=== PATIENT | male | born 1960 | race African-American/Black ===

== ENCOUNTER 2021-05-24 17:44 | Inpatient (IN) | payer MEDICARE, SELFPAY ==
--- NOTE | ~2021-05-24 | XR_ITS ---
EXAMINATION: XR chest 2V DATE: 05/24/2021 18:37 INDICATION: Lower limb swelling, congestive heart failure TECHNIQUE: AP and lateral views of the chest are obtained. COMPARISON: None available FINDINGS: Cardiomegaly is noted. There are small pleural effusions, left greater than right. There ar e also airspace opacities of the lung bases, left greater than right. No pneumothorax is identified. There is mild thoracic spondylosis. A calcified nodule of the right midlung zone likely reflects old granulomatous disease. IMPRESSION: 1. Cardiomegaly. 2. Small pleural effusions. 3. Bibasilar airspace opacities, consistent with atelectasis versus pneumonia. Reviewed, dictated and finalized at location A.
[2021-05-24 17:55] VITALS: BP 136/90; PULSE 136; RESP 20; TEMP 36.6; O2SAT 100
--- NOTE | 2021-05-24 18:00 | ECG_ITS ---
Measurements Intervals Portal Rate: 123 P: [place]: 0 QRS: 18 QRSD: 101 T: 69 QT: 330 QTc: 474 Interpretive Statements ATRIAL FIBRILLATION WITH RAPID VENTRICULAR RESPONSE BORDERLINE R WAVE PROGRESSION, ANTERIOR LEADS BORDERLINE T WAVE ABNORMALITY- INF/HIGH LAT LEADS BASELINE ARTIFACT- I, II, AVR ABNORMAL ECG Electronically Signed On 05-25-2021 16:59:38 CDT by Casper Azul D.O.
--- NOTE | 2021-05-24 20:02 | ED.GENADULT ---
HPI - General Adult General Chief complaint: Extremity Problem,Nontraumatic Stated complaint: swelling in legs Time Seen by Provider: 05/24/21 18:41 Source: RN notes reviewed History of Present Illness HPI narrative: Patient presents to emergency department from home for lower extremity edema. Patient states these have aggressive swelling of his bilateral lower extremities with weeping. He states that he was recently admitted to [facility] for this but states he does not recall what all his diagnosis are he states he forgot his home medication list does not have it with him he states he does not believe he has a history of atrial fibrillation but does believe he has a history of heart failure he denies any chest pain shortness of breath abdominal pain nausea vomiting or any other symptoms Related Data Home Medications Medication Instructions Recorded Confirmed atorvastatin 40 mg PO DAILY 05/24/21 05/25/21 furosemide 100 mg PO BID 05/24/21 05/25/21 metoprolol succinate 50 mg PO DAILY 05/24/21 05/25/21 spironolactone 25 mg PO DAILY 05/24/21 05/25/21 warfarin 8 mg PO DAILY 05/24/21 05/25/21 Allergies Allergy/AdvReac Type Severity Reaction Status Date / Time No Known Allergies Allergy Verified 05/24/21 19:03 Review of Systems Review of Systems: Gen.: Denies fevers or chills ENT: Denies congestion Respiratory: Denies shortness of breath or cough CV: Denies chest pain or palpitations GI: Denies abdominal pain nausea, emesis Musculoskeletal: Reports lower extremity edema Neuro: Denies numbness, tingling, weakness or focal weakness Skin: Denies rash Except as documented, all other systems reviewed and negative [facility] Past Medical History Medical History (Updated 05/25/21 @ 14:23 by Tiny Ray MD) CHF (congestive heart failure) Family History Family History (Updated 05/25/21 @ 00:52 by Sharath Swanson RN) Father Cancer of lung Hypertension Mother Cancer, colon Diabetes mellitus Hypertension Sibling Diabetes mellitus Hypertension Social History Social History (Updated 05/24/21 @ 20:03 by Omar Medina DO) Years smoked: 40 Smoking status: Former smoker Alcohol intake: former Substance use: former Gender identity (if verbalized by the patient): Male Sexual Orientation (if Verbalized by the Patient): Straight or Heterosexual Spiritual care concerns: No Exam Narrative: APPEARANCE: No acute distress, nontoxic, resting in bed EYES: EOMI HEENT: Normocephalic, atraumatic, OMM RESPIRATORY: No respiratory distress Clear to auscultation bilaterally with no rhonchi wheezing or rales. CARDIOVASCULAR: Regular rate and rhythm without murmurs rubs or gallops. ABDOMINAL: Soft, nontender, nondistended, no rebound or guarding MUSCULOSKELETAl: Moves all extremities. No clubbing, cyanosis 4+ edema of the bilateral lower extremities NEURO: Awake and alert. Following commands, speech normal, no focal deficits SKIN:: Warm, dry. No rashes lesions or abrasions PSYCHIATRIC: Normal affect/mood, Course Course Emergency Course: Discussed with patient and family results of workup and diagnosis. Discussed need for admission. Patient and family understand and agree to current treatment plan Care turned over to Dr. Batista at shift change awaiting troponin lab results. Plan for admission following results Vital Signs Vital signs: Vital Signs Temperature 97.9 F 05/24/21 17:55 Pulse Rate 136 H 05/24/21 17:55 Respiratory Rate 20 05/24/21 17:55 Blood Pressure 136/90 05/24/21 17:55 Pulse Oximetry 100 05/24/21 17:55 Temperature 98.3 F 05/26/21 04:00 Pulse Rate 93 05/26/21 06:00 Respiratory Rate 16 05/26/21 04:00 Blood Pressure 108/80 05/26/21 04:00 Pulse Oximetry 94 05/26/21 04:00 Medical Decision Making Vital Signs Vital Signs: Vital Signs Temperature 97.9 F 05/24/21 17:55 Pulse Rate 136 H 05/24/21 17:55 Respiratory Rate 20 05/24/21 17:
[2021-05-24] MEDS: dilTIAZem HCl INJ 25 MG/5 ML VIAL 5 MG IV PUSH (20:19)
[2021-05-24 20:25] VITALS: BP 171/120; PULSE 119; RESP 29; O2SAT 97
[2021-05-24 20:51] LABS: Basophils Percent Auto 0.7 % (0.2-1.2); Eosinophils Absolute Auto 0.4 K/mm3 (0-0.3); Eosinophils Percent Auto 7.7 % (0-4.4); Hematocrit 43.9 % (42.0-52.0); Immature Granulocyte Absolute 0.02 K/mm3 (0.00-0.031); Immature Granulocyte Percent A 0.4 % (0-0.5); Lymphocytes Absolute Auto 1.49 K/mm3 (0.9-3.2); Lymphocytes Percent Auto 27.2 % (18.3-44.2); Mean Corpuscular HGB Conc 34.2 g/dl (32-36); Mean Corpuscular Hemoglobin 35.3 pg (26-34); Mean Corpuscular Volume 103.3 fl (80-100); Monocytes Absolute Auto 0.3 K/mm3 (0.1-0.6); Monocytes Percent Auto 6.2 % (2.6-8.5); Neutrophils Absolute Auto 3.2 K/mm3 (1.3-6.7); Neutrophils Percent Auto 57.8 % (45.5-73.1); Nucleated Red Blood Cells Perc 0.4 % (0.0-0.2); Platelet Count Result 202 k/mm3 (150-375); Red Blood Count 4.25 M/mm3 (4.6-6.20); Red Cell Distribution Width 15.9 % (11.5-14.5); White Blood Count 5.5 K/mm3 (4.5-10.0)
[2021-05-24 20:58] VITALS: BP 142/105; PULSE 126
[2021-05-24 20:59] LABS: Anion Gap 11 mmol/L (8-16); Blood Urea Nitrogen 10 mg/dL (9-20); Calcium 8.8 mg/dL (8.4-10.2); Carbon Dioxide 19 mmol/L (22-30); Chloride 107 mmol/L (98-107); Estimated CRCL calculation 92 ml/min; Estimated Glomerular Filt Rate > 60; Glucose 102 mg/dL (65-110); Potassium 3.3 mmol/L (3.4-5.0); Sodium 137 mmol/L (137-145)
[2021-05-24 21:02] LABS: INR 1.4; Prothrombin Time 16.5 Seconds (11.1-14.7)
[2021-05-24 21:03] LABS: Partial Thromboplastin Time 33.3 SECONDS (22.3-36.8)
[2021-05-24 21:10] LABS: NT Pro B Type Natriuretic Pept 8740 pg/mL (5-100)
[2021-05-24 21:15] LABS: Troponin I 0.066 ng/mL (0.000-0.034)
[2021-05-24 22:07] VITALS: BP 102/91; PULSE 121; RESP 23; O2SAT 98
--- NOTE | 2021-05-24 23:00 | PM.IMHP ---
H&P: HPI History of Present Illness Date/Time: 05/24/21 23:00 Chief Complaint: Shortness of breath Narrative: This is a 60-year-old male with past medical history significant for congestive heart failure, patient usually goes to outside hospital to get his care he came in today due to worsening shortness of breath, worsening bilateral lower extremity edema, cough ,difficulty sleeping at nighttime. Upon arrival to emergency room patient was found to be on atrial fibrillation with rapid ventricular response he was started on diltiazem drip. Chest x-ray was significant for bilateral pleural effusions and opacities of the lungs. Brain atretic peptide was 8740 and a troponin level was elevated. Patient denies any chest pain, palpitations, fevers, rigors, chills, nausea, vomiting, diarrhea, abdominal pain, syncope or near-syncope states that has become increasingly difficult for him to ambulate due to the swelling in his legs. Decision has been made to admit the patient to telemetry unit for further management treatment and evaluation. Review of Systems Review of Systems: Progressively worsening shortness of breath, worsening bilateral lower extremity edema difficulty ambulating Constitutional: Constitutional: Denies chills, Denies fatigue, Denies fever(s), Denies frequent falls, Denies lethargy, Denies night sweats and Denies weakness Eyes: Eyes: Denies change in vision ENT: Denies dysphagia, Denies vertigo, Denies dizziness, Denies nasal congestion, Denies nasal discharge, Denies nasal obstruction and Denies odynophagia Cardiovascular: Cardiovascular: Denies chest pain at rest, Denies chest pain with activity, Reports pedal edema, Denies irregular heart rhythm, Reports leg edema, Denies lightheadedness, Denies radiating jaw, neck or arm pain, Denies palpitations, Reports dyspnea, Reports dyspnea on exertion and Reports orthopnea Respiratory: Respiratory: Reports cough Gastrointestinal: Gastrointestinal: Denies abdominal pain, Denies heartburn, Denies diarrhea, Denies nausea and Denies vomiting Genitourinary: Genitourinary: Reports no additional male genitourinary complaints Musculoskeletal: Musculoskeletal: Reports abnormal gait Integumentary/Breasts: Skin/Breast: Reports system reviewed and no additional complaints, except as docu Neurologic: Reports system reviewed and no additional complaints, except as documented Psychiatric: Psychiatric: Reports no additional psychiatric complaints Endocrine: Endocrine: Reports no additional endocrine complaints Hematologic/Lymphatic: Hematologic/Lymphatic: Reports no additional hematologic/lymphatic complaints Allergic/Immunologic: Allergic/Immunologic: Reports no additional allergic/immunologic complaints [facility] Past Medical History Medical History (Updated 05/24/21 @ 21:34 by David Batista MD) CHF (congestive heart failure) Family History Family History (Updated 05/25/21 @ 00:52 by Sharath Swanson RN) Father Cancer of lung Hypertension Mother Cancer, colon Diabetes mellitus Hypertension Sibling Diabetes mellitus Hypertension Social History Social History (Updated 05/24/21 @ 20:03 by Omar Medina DO) Years smoked: 40 Smoking status: Former smoker Alcohol intake: former Substance use: former Gender identity (if verbalized by the patient): Male Sexual Orientation (if Verbalized by the Patient): Straight or Heterosexual Spiritual care concerns: No Meds Home Medications and Allergies Home Medications Medication Instructions Recorded Confirmed Type atorvastatin 05/24/21 History furosemide 05/24/21 History metoprolol succinate PO 05/24/21 History spironolactone 05/24/21 History warfarin 05/24/21 History Allergies Allergy/AdvReac Type Severity Reaction Status Date / Time No Known Allergies Allergy Verified 05/24/21 19:03 Vital Signs Vital Signs - 24 hr 05/24/21 17:55 05/24/21 20:25 05/24/21 20:58 Temperatu
[2021-05-24 23:24] VITALS: BP 123/105; PULSE 112; RESP 22; O2SAT 98
[2021-05-25] VITALS (14 sets, daily range): BP systolic 124–161; BP diastolic 76–113; PULSE 92–134; RESP 20–28; TEMP 36.1–36.7; O2SAT 94–100; BMI 39.0
--- NOTE | 2021-05-25 | ECHO_ITS ---
Patient Info Name: Chau Harrell Age: 60 years : 1960 Gender: Male Ht: 69 in Wt: 264 lbs BSA: 2.47 m2 HR: 76 bpm BP: 129 / 104 mmHg Technical Quality: Good Exam Date: 05/25/2021 8:34 AM Exam Location: [facility] Patient Status: Outpatient Admit Date: 05/24/2021 Staff Ordering Physician: Tino Dash MD Celluloid Trimmer: Clyde Sanches RDCS, RT Attending Provider: Tino Dash MD Referring Physician: Ekta SPEARS; Exam Type: CA echo doppler color flow Study Info Indications I50.9 - Heart failure, unspecified Complete two-dimensional, color flow and Doppler transthoracic echocardiogram is performed. Summary 1. Complete two-dimensional, color flow and Doppler transthoracic echocardiogram is performed. 2. Left ventricular chamber dimension is moderately enlarged. 3. Left ventricular systolic function is severely reduced, estimated at 20-25%. 4. There is mildly increased left ventricular wall thickness. 5. The left ventricular diastolic function is abnormal. 6. E/e' 14 is mildly elevated. 7. Atrial fibrillation. 8. Right ventricular systolic function is moderately reduced and with abnormal TAPSE 1.4 cm. 9. Right ventricular chamber dimension is mildly enlarged. 10. Left atrial chamber dimension is moderately enlarged. 11. Right atrial chamber dimension is moderately enlarged. 12. There is mild aortic valve sclerosis. 13. There is moderate mitral valve regurgitation. 14. There is mild to moderate tricuspid valve regurgitation. 15. Moderate pulmonary hypertension, estimated pulmonary arterial systolic pressure is 52 mmHg. 16. Dilated inferior vena cava with <50% collapse upon inspiration consistent with significantly elevated right atrial pressure, 15 mmHg. 17. Pleural effusion noted. Left Ventricle E/e' 14 is mildly elevated. Atrial fibrillation. Left ventricular chamber dimension is moderately enlarged. Left ventricular systolic function is severely reduced, estimated at 20-25%. There is mildly increased left ventricular wall thickness. The left ventricular diastolic function is abnormal. Right Ventricle Right ventricular systolic function is moderately reduced and with abnormal TAPSE 1.4 cm. Right ventricular chamber dimension is mildly enlarged. Left Atria Left atrial chamber dimension is moderately enlarged. Right Atria Right atrial chamber dimension is moderately enlarged. Aortic Valve The aortic valve is trileaflet. There is mild aortic valve sclerosis. There is no aortic valve stenosis. There is no aortic valve regurgitation. Pulmonic Valve There is no pulmonic regurgitation. Mitral Valve There is no mitral valve stenosis. There is moderate mitral valve regurgitation. Tricuspid Valve There is mild to moderate tricuspid valve regurgitation. Moderate pulmonary hypertension, estimated pulmonary arterial systolic pressure is 52 mmHg. Pericardium/Pleural Pleural effusion noted. There is no pericardial effusion. Inferior Vena Cava Dilated inferior vena cava with <50% collapse upon inspiration consistent with significantly elevated right atrial pressure, 15 mmHg. Aorta The aortic root size at the sinus of Valsalva is normal. Left Ventricular Outflow Tract Name Value Normal LVOT 2D
[2021-05-25] MEDS: ACETAMINOPHEN 325 MG TABLET 650 MG PO (00:27)
--- NOTE | 2021-05-25 00:56 | ADMIMU ---
This patient, Chau Harrell, was admitted to IMU status, and placed in Intensive Care Unit-10. Patient/family oriented to hospital policies and general routines including ID bracelet, bed and alarms, visiting hours, pain management, procedures, bathroom and other care routines, personal items, smoking policy, room service/diet, and visiting hours. Valuables list has been completed. Information on how to activate the Rapid Response Team has been discussed. Patient/Family are encouraged to report perceived risks to care and to ask questions if they do not understand what they are told or what they should do.
--- NOTE | 2021-05-25 08:21 | PM.CNCAR ---
Assessment and Plan Assessment and plan (1) Atrial fibrillation with rapid ventricular response: Code(s): I48.91 - Unspecified atrial fibrillation Status: Acute Assessment and Plan: Rate control with Diltiazem drip. [id number] 2 (Hypertension and CHF). He is currently on Lovenox. It appears he is on Warfarin and need to achieve INR 2-3, or change to NOAC. (2) CHF (congestive heart failure): Qualifiers: Heart failure chronicity: unspecified Heart failure type: unspecified Qualified Code(s): I50.9 - Heart failure, unspecified Code(s): I50.9 - Heart failure, unspecified Status: Acute Assessment and Plan: Diurese patient with Lasix 40 mg IV BID. Continue Spironolactone. Obtain echo. (3) Hypertension: Code(s): I10 - Essential (primary) hypertension Status: Acute Assessment and Plan: Stable. (4) Dyslipidemia: Code(s): E78.5 - Hyperlipidemia, unspecified Status: Acute Assessment and Plan: On Atorvastatin. History of Present Illness History of Present Illness Consult date/time: 05/25/21 08:21 Reason for consult: Atrial fib, CHF. This is a 60-year-old male presents to ER worsening edema of legs and worsening TORRES. He has a history of congestive heart failure, hypertension, dyslipidemia. He has not been told he had atrial fib in the past. He states he noted worsening edema of legs to the point of weeping and more TORRES with minimal exertion. Normally he can walk about a block until recently. He lives in an apartment alone in [place]. Upon arrival to emergency room patient was found to be on atrial fibrillation with rapid ventricular response he was started on diltiazem drip. Chest x-ray was significant for bilateral pleural effusions and opacities of the lungs. Brain atretic peptide was 8740 and a troponin level was elevated at 0.066. Patient denies any chest pain, palpitations. Reason For Visit: afib, RVR, CF exacerbation Review of Systems Review of Systems: All systems reviewed & are unremarkable except as noted in HPI and below Constitutional: Constitutional: Reports as per HPI, Denies chills and Denies fever(s) Cardiovascular: Cardiovascular: Reports as per HPI, Denies chest pain, Reports irregular heart rhythm, Reports leg edema, Denies lightheadedness and Reports dyspnea on exertion Respiratory: Respiratory: Reports as per HPI and Reports dyspnea on exertion Gastrointestinal: Gastrointestinal: Reports as per HPI and Denies abdominal pain Genitourinary: Genitourinary: Reports as per HPI and Denies dysuria Musculoskeletal: Musculoskeletal: Reports as per HPI Neurologic: Reports as per HPI, Denies dizziness and Denies syncope [facility] Past Medical History Medical History (Updated 05/25/21 @ 08:27 by Casper Azul DO) CHF (congestive heart failure) Family History Family History (Updated 05/25/21 @ 00:52 by Sharath Swanson RN) Father Cancer of lung Hypertension Mother Cancer, colon Diabetes mellitus Hypertension Sibling Diabetes mellitus Hypertension Social History Social History (Updated 05/24/21 @ 20:03 by Omar Medina DO) Years smoked: 40 Smoking status: Former smoker Alcohol intake: former Substance use: former Gender identity (if verbalized by the patient): Male Sexual Orientation (if Verbalized by the Patient): Straight or Heterosexual Spiritual care concerns: No Meds Home Medications and Allergies Home Medications Medication Instructions Recorded Confirmed Type atorvastatin 05/24/21 History furosemide 05/24/21 History metoprolol succinate PO 05/24/21 History spironolactone 05/24/21 History warfarin 05/24/21 History Allergies Allergy/AdvReac Type Severity Reaction Status Date / Time No Known Allergies Allergy Verified 05/24/21 19:03 Vital Signs Vital Signs - 24 hr 05/24/21 17:55 05/24/21 20:25 05/24/21 20:58 Temperature 97.9 F Pulse Rate
[2021-05-25] MEDS: POTASSIUM CHLORIDE 20 MEQ TABLET.ER 40 MEQ PO ×2 (09:38→17:40)
[2021-05-25] MEDS: SPIRONOLACTONE 25 MG TABLET PO (09:38)
[2021-05-25] MEDS: ENOXAPARIN 120 MG/0.8 ML SYRINGE SUB-Q ×2 (09:39→17:40)
[2021-05-25] MEDS: FUROSEMIDE INJ 40 MG/4 ML VIAL IV PUSH ×2 (11:28→17:40)
[2021-05-25] MEDS: LOSARTAN POTASSIUM 25 MG TABLET PO (11:29)
[2021-05-25] MEDS: carvediloL 6.25 MG TABLET PO ×2 (11:29→20:30)
[2021-05-25] MEDS: SALINE LOCK FLUSH 10 ML IV PUSH (13:10)
--- NOTE | 2021-05-25 14:17 | PM.IMPN ---
Progress Note: A&P Assessment and Plan (1) Atrial fibrillation with rapid ventricular response: Code(s): I48.91 - Unspecified atrial fibrillation Status: Acute Assessment and Plan: Presented with swelling of the lower extremities, was found to be in AFib RVR in the ER with heart rates in the 130s -patient was started on Cardizem infusion and transferred to the ICU -upon arriving in the ICU patient's Cardizem in the system, also patient did pull out his IV lines he was without Cardizem IV for a while. Heart rates had settled down with an, cardiology evaluated the patien -continue Coreg and full-dose Lovenox -echocardiogram 05/25/2021 showed LV chamber dimensions morbidly enlarged, LV systolic function is severely reduced at 20-25%. Left ventricle diastolic function is abnormal. Moderate mitral valve regurg, [id number] tricuspid valve regurg, moderate pulmonary hypertension with RVSP of 52 mmHg -following the patient (2) CHF (congestive heart failure): Qualifiers: Heart failure chronicity: unspecified Heart failure type: unspecified Qualified Code(s): I50.9 - Heart failure, unspecified Code(s): I50.9 - Heart failure, unspecified Status: Acute Assessment and Plan: Patient has systolic and diastolic failure per echocardiogram with significant cardiomyopathy with an EF of 20-25% -continue Lasix and spironolactone -continue losartan -replace potassium (3) Dyslipidemia: Code(s): E78.5 - Hyperlipidemia, unspecified Status: Acute Assessment and Plan: Will add atorvastatin (4) Hypertension: Code(s): I10 - Essential (primary) hypertension Status: Acute Assessment and Plan: Continue Coreg and losartan (5) DVT prophylaxis: Code(s): Z29.9 - Encounter for prophylactic measures, unspecified Status: Acute Assessment and Plan: On full-dose Lovenox Additional Plan Discussed with patient updated with his condition and plan of care, he is aware that he will have to be compliant with his medications Code status full code This dictation may have been done utilizing a voice recognition system. Attempts have been made to correct errors. However, there may be uncorrected grammatical, spelling, and recognition errors present. Due to a high probability of clinically significant, life threatening deterioration, the patient required my highest level of preparedness to intervene emergently and I personally spent this critical care time directly and personally managing the patient. This critical care time included obtaining a history; examining the patient; pulse oximetry; ordering and review of studies; arranging urgent treatment with development of a management plan; evaluation of patient's response to treatment; frequent reassessment; and discussions with other providers. It was exclusive of separately billable procedures and treating other patients and teaching time. Please see Assessment and Plan section and the rest of the note for further information on patient assessment and treatment Subjective Date/time seen: 05/25/21 14:17 Interval history: 60-year-old gentleman with past medical history of congestive heart failure, atrial fibrillation presented the ED on 05/24/2021 with complains of shortness of breath and increased swelling in his lower extremities. Patient is noncompliant with medication 05/25/2021: Patient being seen for hospitalist team. Is awake, alert, able to answer questions, states his breathing has improved since he has come to the hospital, he is complaining of bilateral lower extremity edema with weeping. Denies any chest pain, nausea, vomiting, abdominal pain. Review of Systems Review of Systems: All systems reviewed & are unremarkable except as noted in HPI and below Exam Const: General: comfortable and no acute distress HENMT: Mouth: Yes moist mucous membranes Eyes: Sclera: sclerae normal Pupils: Equal, roun
[2021-05-26] VITALS (13 sets, daily range): BP systolic 107–129; BP diastolic 74–92; PULSE 80–121; RESP 16–22; TEMP 35.7–36.8; O2SAT 94–100
[2021-05-26] MEDS: SALINE LOCK FLUSH 10 ML IV PUSH ×4 (06:04→20:28)
[2021-05-26 06:06] LABS: Basophils Percent Auto 0.4 % (0.2-1.2); Eosinophils Absolute Auto 0.4 K/mm3 (0-0.3); Eosinophils Percent Auto 9.3 % (0-4.4); Hematocrit 42.1 % (42.0-52.0); Hemoglobin 13.9 g/dL (14.0-18.0); Immature Granulocyte Absolute 0.02 K/mm3 (0.00-0.031); Immature Granulocyte Percent A 0.4 % (0-0.5); Lymphocytes Absolute Auto 1.42 K/mm3 (0.9-3.2); Lymphocytes Percent Auto 31.3 % (18.3-44.2); Mean Platelet Volume 9.8 fl (7.4-10.4); Monocytes Absolute Auto 0.3 K/mm3 (0.1-0.6); Monocytes Percent Auto 6.6 % (2.6-8.5); Neutrophils Absolute Auto 2.4 K/mm3 (1.3-6.7); Platelet Count Result 173 k/mm3 (150-375); Red Blood Count 3.97 M/mm3 (4.6-6.20); White Blood Count 4.5 K/mm3 (4.5-10.0)
[2021-05-26 06:16] LABS: Alanine Aminotransferase 17 U/L (4-50); Alkaline Phosphatase 89 U/L (38-126); Anion Gap 6 mmol/L (8-16); Aspartate Amino Transferase 33 U/L (17-59); Bilirubin,Total 2.4 mg/dL (0.2-1.3); Blood Urea Nitrogen 10 mg/dL (9-20); Calcium 8.5 mg/dL (8.4-10.2); Carbon Dioxide 30 mmol/L (22-30); Chloride 105 mmol/L (98-107); Estimated CRCL calculation 94 ml/min; Estimated Glomerular Filt Rate > 60; Glucose 107 mg/dL (65-110); Magnesium 1.4 mg/dL (1.6-2.3); Phosphorus 2.6 mg/dL (2.5-4.5); Potassium 3.4 mmol/L (3.4-5.0); Sodium 141 mmol/L (137-145)
--- NOTE | 2021-05-26 07:34 | ECG_ITS ---
Measurements Intervals [place] Rate: 105 P: [place]: 0 QRS: 1 QRSD: 102 T: 60 QT: 382 QTc: 505 Interpretive Statements ATRIAL FIBRILLATION WITH RAPID VENTRICULAR RESPONSE BORDERLINE R WAVE PROGRESSION, ANTERIOR LEADS LOW QRS VOLTAGE IN LIMB LEADS BORDERLINE T WAVE ABNORMALITY- INF/LAT LEADS ABNORMAL ECG Electronically Signed On 05-26-2021 8:47:39 CDT by Casper Azul D.O.
--- NOTE | 2021-05-26 08:51 | PM.PNCARD ---
Progress Note: A&P Assessment and Plan (1) Atrial fibrillation with rapid ventricular response: Code(s): I48.91 - Unspecified atrial fibrillation Status: Acute Assessment and Plan: Rate control with Coreg. Increase Coreg 12.5 mg BID. [id number] 2 (Hypertension and CHF). He is currently on Lovenox. It appears he was on Warfarin but subtherapeutic INR. Will use Eliquis 5 mg BID instead of warfarin. (2) CHF (congestive heart failure): Qualifiers: Heart failure chronicity: unspecified Heart failure type: unspecified Qualified Code(s): I50.9 - Heart failure, unspecified Code(s): I50.9 - Heart failure, unspecified Status: Acute Assessment and Plan: Acute on chronic combined systolic and diastolic heart failure. Need to obtain old records where he gets he care to see if had a prior echo or any cardiac workup. He is on heart failure medications including Coreg, Losartan, Spironolactone. Advise that he is at risk for sudden cardiac arrest with low EF. Diurese patient with Lasix 40 mg IV BID. Continue Spironolactone. (3) Hypertension: Code(s): I10 - Essential (primary) hypertension Status: Acute Assessment and Plan: Stable. (4) Dyslipidemia: Code(s): E78.5 - Hyperlipidemia, unspecified Status: Acute Assessment and Plan: On Atorvastatin. Subjective Date/time seen: 05/26/21 08:51 Denies chest pain. Has some sob and edema of legs improving. Exam Const: General: cooperative, healthy appearing and comfortable Resp: Auscultation: clear to auscultation bilaterally, no crackles, no rales, no rhonchi and no wheezes Cardio: Jugular venous distension: no JVD Rate: tachycardic Rhythm: abnormal rhythm Heart sounds: no murmurs Peripheral pulses: dorsalis pedis present GI: GI Palp: No abdominal tenderness and Yes Soft to palpation Neuro: General: oriented to person, oriented to place and oriented to time Extrem: Right lower extremity: edema Left lower extremity: edema Other: Mod-severe edema of both legs Objective Data Vital Signs Vital Signs: Vital Signs - 24 hr 05/25/21 08:59 05/25/21 10:00 05/25/21 11:29 Temperature Pulse Rate 114 H 134 H Respiratory Rate Blood Pressure Pulse Oximetry 94 05/25/21 12:00 05/25/21 14:00 05/25/21 16:00 Temperature 98 F 97 F L Pulse Rate 102 H 95 92 Respiratory Rate 20 23 H Blood Pressure 124/92 H 132/97 H Pulse Oximetry 100 99 05/25/21 18:00 05/25/21 20:00 05/25/21 20:30 Temperature 98.1 F Pulse Rate 101 H 108 H 95 Respiratory Rate 22 H Blood Pressure 161/113 H Pulse Oximetry 98 05/25/21 22:00 05/26/21 00:00 05/26/21 02:00 Temperature Pulse Rate 103 H 95 93 Respiratory Rate Blood Pressure Pulse Oximetry 05/26/21 04:00 05/26/21 06:00 05/26/21 07:10 Temperature 98.3 F 97.9 F Pulse Rate 93 93 89 Respiratory Rate 16 18 Blood Pressure 108/80 118/79 Pulse Oximetry 94 100 05/26/21 07:13 05/26/21 08:00 Temperature Pulse Rate 89 121 H Respiratory Rate 18 Blood Pressure Pulse Oximetry 100 Intake/Output Intake/Output: Intake & Output 05/23/21 05/24/21 05/25/21 05/26/21 23:59 23:59 23:59 23:59 Intake Total 1027 450 Output Total 750 2000 Balance 277 -1550 Meds/Results Medications: Active Medications Generic Name Dose Route Start Last Admin Trade Name Freq PRN Reason Stop Dose Admin Acetaminophen 650 mg 05/24/21 23:40 05/25/21 00:27 Acetaminophen 325 Mg Tablet PO 650 mg Q4H PRN Administration Mild Pain (1-3) or Fever Apixaban 5 mg 05/26/21 09:00 Apixaban 5 Mg Tablet PO Q12HR ANIA Atorvastatin Calcium 40 mg 05/26/21 09:00 Atorvastatin 40 Mg Tablet PO DAILY ANIA Carvedilol 12.5 mg 05/26/21 09:00 Carvedilol 12.5 Mg Tablet PO Q12HR ANIA Furosemide 40 mg 05/25/21 09:00 05/25/21 17:40 Furosemide Inj 40 Mg/4 Ml Vial IV PUSH 40 mg BID ANIA Admi
[2021-05-26] MEDS: LOSARTAN POTASSIUM 25 MG TABLET PO (08:52)
[2021-05-26] MEDS: FUROSEMIDE INJ 40 MG/4 ML VIAL IV PUSH ×2 (08:52→17:02)
[2021-05-26] MEDS: SPIRONOLACTONE 25 MG TABLET PO (08:52)
[2021-05-26] MEDS: POTASSIUM CHLORIDE 20 MEQ PACKET (FOR LIQUID) 40 MEQ PO (08:53)
[2021-05-26] MEDS: MAGNESIUM SULF 2 GM/WATER 50ML 2 GM/50 ML BAG IVPB (08:54)
[2021-05-26] MEDS: APIXABAN 5 MG TABLET PO (10:39)
[2021-05-26] MEDS: ATORVASTATIN 40 MG TABLET PO (10:39)
[2021-05-26] MEDS: carvediloL 12.5 MG TABLET PO ×2 (10:39→20:28)
[2021-05-26] MEDS: MAGNESIUM OXIDE 400 MG TABLET PO ×2 (10:40→17:02)
--- NOTE | 2021-05-26 11:32 | PC.NURSE ---
Transfer received from ICU 10 to room 244. Patient oriented to the room.
[2021-05-26 12:41] LABS: INR 1.9
--- NOTE | 2021-05-26 13:58 | PM.IMPN ---
Progress Note: A&P Assessment and Plan (1) Atrial fibrillation with rapid ventricular response: Code(s): I48.91 - Unspecified atrial fibrillation Status: Acute Assessment and Plan: Presented with swelling of the lower extremities, was found to be in AFib RVR in the ER with heart rates in the 130s -patient was started on Cardizem infusion and transferred to the ICU, once he arrived to the ICU Cardizem infusion was discontinued as he pulled out his IV line. -patient was started on Coreg by Cardiology which will be increased to 12.5 mg b.i.d. -Lovenox will be switched to Eliquis 5 mg b.i.d. by Cardiology -echocardiogram 05/25/2021 showed LV chamber dimensions morbidly enlarged, LV systolic function is severely reduced at 20-25%. Left ventricle diastolic function is abnormal. Moderate mitral valve regurg, [id number] tricuspid valve regurg, moderate pulmonary hypertension with RVSP of 52 mmHg -following the patient (2) CHF (congestive heart failure): Qualifiers: Heart failure chronicity: unspecified Heart failure type: unspecified Qualified Code(s): I50.9 - Heart failure, unspecified Code(s): I50.9 - Heart failure, unspecified Status: Acute Assessment and Plan: Patient has systolic and diastolic failure per echocardiogram with significant cardiomyopathy with an EF of 20-25% -continue Lasix and spironolactone -continue losartan -replace potassium -monitor renal function (3) Dyslipidemia: Code(s): E78.5 - Hyperlipidemia, unspecified Status: Acute Assessment and Plan: Continue atorvastatin (4) Hypertension: Code(s): I10 - Essential (primary) hypertension Status: Acute Assessment and Plan: Continue Coreg and losartan (5) DVT prophylaxis: Code(s): Z29.9 - Encounter for prophylactic measures, unspecified Status: Acute Assessment and Plan: Lovenox switched to Eliquis Additional Plan Code status full code This dictation may have been done utilizing a voice recognition system. Attempts have been made to correct errors. However, there may be uncorrected grammatical, spelling, and recognition errors present. Due to a high probability of clinically significant, life threatening deterioration, the patient required my highest level of preparedness to intervene emergently and I personally spent this critical care time directly and personally managing the patient. This critical care time included obtaining a history; examining the patient; pulse oximetry; ordering and review of studies; arranging urgent treatment with development of a management plan; evaluation of patient's response to treatment; frequent reassessment; and discussions with other providers. It was exclusive of separately billable procedures and treating other patients and teaching time. Please see Assessment and Plan section and the rest of the note for further information on patient assessment and treatment Subjective Date/time seen: 05/26/21 13:58 Interval history: Interval history: 60-year-old gentleman with past medical history of congestive heart failure, atrial fibrillation presented the ED on 05/24/2021 with complains of shortness of breath and increased swelling in his lower extremities. Patient is noncompliant with medication 05/26/2021: Patient being seen for hospitalist group. Is awake, alert and oriented, able to answer questions sometimes seems to be confused. Complains of some shortness of breath with activity, and lower extremity edema. Denies any chest pain, shortness of breath, abdominal pain, nausea, vomiting. He is tolerating p.o. diet. Patient is hemodynamically stable, afebrile and diuresing well response to diuretics Review of Systems Review of Systems: All systems reviewed & are unremarkable except as noted in HPI and below Exam Const: General: comfortable and no acute distress HENMT: Mouth: Yes moist mucous membranes Eyes: Sclera
[2021-05-26] MEDS: WARFARIN (*PBKC) 4 MG TABLET 8 MG PO (17:03)
[2021-05-26] MEDS: ENOXAPARIN 120 MG/0.8 ML SYRINGE SUB-Q (20:27)
[2021-05-27] VITALS (9 sets, daily range): BP systolic 111–133; BP diastolic 76–100; PULSE 58–102; RESP 16–20; TEMP 35.7–36.4; O2SAT 97–100
--- NOTE | 2021-05-27 04:19 | PC.NURSE ---
Pt is complaining he feels like he is making multiple requests that are not being answered. Making claims of things he has asked for which where never asked for despite being room several times. Has stated he feels like he is not being taken care of because he is a black man.
--- NOTE | 2021-05-27 05:16 | PC.NURSE ---
Pt pulled out midline verified that tip was intact with Dinah Law.
--- NOTE | 2021-05-27 05:48 | PC.NURSE ---
attempted to call pt's sister. voice mail box full. left sms message of number only have not received call back. Pt pulled out midline as I was attempting to call sister and refusing to take vital signs for aide. He had also removed [place] catheter again. Notified aide he has taken them off.
--- NOTE | 2021-05-27 05:59 | PC.NURSE ---
As attempting to call sister to help speak with Chau. Nurse aide went in to ask about vital signs. Told CASINO CHANGE ATTENDANT he has pulled of [place] Catheter and pulled out Midline. At this point and time I have not heard back from his sister.
[2021-05-27] MEDS: ATORVASTATIN 40 MG TABLET PO (09:07)
[2021-05-27] MEDS: SPIRONOLACTONE 25 MG TABLET PO (09:07)
[2021-05-27] MEDS: MAGNESIUM OXIDE 400 MG TABLET PO ×2 (09:07→16:47)
[2021-05-27] MEDS: LOSARTAN POTASSIUM 25 MG TABLET PO (09:07)
[2021-05-27] MEDS: ENOXAPARIN 120 MG/0.8 ML SYRINGE SUB-Q ×2 (09:08→22:36)
[2021-05-27] MEDS: carvediloL 12.5 MG TABLET PO ×2 (09:08→22:35)
--- NOTE | 2021-05-27 09:11 | PM.PNCARD ---
Progress Note: A&P Assessment and Plan (1) Atrial fibrillation with rapid ventricular response: Code(s): I48.91 - Unspecified atrial fibrillation Status: Acute Assessment and Plan: Rate controlled with Coreg 12.5 mg BID. [id number] 2 (Hypertension and CHF). He is currently on Lovenox. It appears he was on Warfarin but subtherapeutic INR. Discuss with patient about the importance of needing to check INR regularly on Warfarin, and he does not want to do that. His plan does not cover NOAC including Eliquis. While in hospital will leave him on Lovenox, but upon discharge he will go on Aspirin EC 325 mg daily to decrease risk of cardioembolism, but not ideal compared to Warfarin or NOAC. However, due to noncompliance with INR checking it is safer for him to be on Aspirin instead. (2) CHF (congestive heart failure): Qualifiers: Heart failure chronicity: unspecified Heart failure type: unspecified Qualified Code(s): I50.9 - Heart failure, unspecified Code(s): I50.9 - Heart failure, unspecified Status: Acute Assessment and Plan: Acute on chronic combined systolic and diastolic heart failure. He states he was at [facility] and advised to wear Life Vest to prevent sudden cardiac arrest but he refused it and refusing it now. I also discussed left heart cath as he states he has not had one done but refusing that also. He is on heart failure medications including Coreg, Losartan, Spironolactone. Diurese patient with Lasix 40 mg IV BID. Continue Spironolactone. (3) Hypertension: Code(s): I10 - Essential (primary) hypertension Status: Acute Assessment and Plan: Stable. (4) Dyslipidemia: Code(s): E78.5 - Hyperlipidemia, unspecified Status: Acute Assessment and Plan: On Atorvastatin. Subjective Date/time seen: 05/27/21 09:11 Patient reports he is feeling good, no chest pain or sob. His swelling of legs improving. Exam Const: General: cooperative, healthy appearing and comfortable Resp: Auscultation: clear to auscultation bilaterally, no crackles, no rales, no rhonchi and no wheezes Cardio: Jugular venous distension: no JVD Rate: regular rate Rhythm: abnormal rhythm Heart sounds: no murmurs Peripheral pulses: dorsalis pedis present GI: GI Palp: No abdominal tenderness and Yes Soft to palpation Neuro: General: oriented to person, oriented to place and oriented to time Extrem: Right lower extremity: edema Left lower extremity: edema Other: Mod-severe edema of both legs Objective Data Vital Signs Vital Signs: Vital Signs - 24 hr 05/26/21 10:39 05/26/21 12:00 05/26/21 16:00 Temperature Pulse Rate 109 H 98 100 Respiratory Rate Blood Pressure Pulse Oximetry 05/26/21 16:05 05/26/21 20:00 05/26/21 20:28 Temperature 96.3 F L 97.2 F L Pulse Rate 102 H 109 H 80 Respiratory Rate 18 Blood Pressure 129/92 H 107/74 Pulse Oximetry 98 100 05/27/21 00:00 05/27/21 04:00 05/27/21 09:08 Temperature 97.5 F L 96.9 F L Pulse Rate 93 72 101 H Respiratory Rate 18 20 Blood Pressure 112/80 123/100 H Pulse Oximetry 100 98 Intake/Output Intake/Output: Intake & Output 05/24/21 05/25/21 05/26/21 05/27/21 23:59 23:59 23:59 23:59 Intake Total 1027 1830 1000 Output Total 750 4650 1999 Balance 277 -2892 -1000 Meds/Results Medications: Active Medications Generic Name Dose Route Start Last Admin Trade Name Freq PRN Reason Stop Dose Admin Acetaminophen 650 mg 05/24/21 23:40 05/25/21 00:27 Acetaminophen 325 Mg Tablet PO 650 mg Q4H PRN Administration Mild Pain (1-3) or Fever Atorvastatin Calcium 40 mg 05/26/21 09:00 05/27/21 09:07 Atorvastatin 40 Mg Tablet PO 40 mg DAILY ANIA Administration Carvedilol 12.5 mg 05/26/21 09:00 05/27/21 09:08 Carvedilol 12.5 Mg Tablet PO 12.5 mg Q12HR ANIA Administration Enoxaparin Sodium 120 mg 05/26/21 21:00 05/27/21 09:08
[2021-05-27 10:28] LABS: INR 1.4; Prothrombin Time 17.3 Seconds (11.1-14.7)
[2021-05-27 10:36] LABS: Anion Gap 5 mmol/L (8-16); Blood Urea Nitrogen 9 mg/dL (9-20); Calcium 8.5 mg/dL (8.4-10.2); Carbon Dioxide 29 mmol/L (22-30); Chloride 102 mmol/L (98-107); Estimated CRCL calculation 108 ml/min; Estimated Glomerular Filt Rate > 60; Glucose 113 mg/dL (65-110); Magnesium 1.6 mg/dL (1.6-2.3); Potassium 3.6 mmol/L (3.4-5.0); Sodium 136 mmol/L (137-145)
[2021-05-27] MEDS: FUROSEMIDE 40 MG TABLET PO ×2 (11:22→16:47)
--- NOTE | 2021-05-27 12:46 | PM.IMPN ---
Progress Note: A&P Assessment and Plan (1) Atrial fibrillation with rapid ventricular response: Code(s): I48.91 - Unspecified atrial fibrillation Status: Acute Assessment and Plan: Presented with swelling of the lower extremities, was found to be in AFib RVR in the ER with heart rates in the 130s -patient was started on Cardizem infusion and transferred to the ICU, once he arrived to the ICU Cardizem infusion was discontinued as he pulled out his IV line. -patient was started on Coreg by Cardiology which will be increased to 12.5 mg b.i.d. -Lovenox will be switched to Eliquis 5 mg b.i.d. by Cardiology -echocardiogram 05/25/2021 showed LV chamber dimensions morbidly enlarged, LV systolic function is severely reduced at 20-25%. Left ventricle diastolic function is abnormal. Moderate mitral valve regurg, [id number] tricuspid valve regurg, moderate pulmonary hypertension with RVSP of 52 mmHg -following the patient 05/27 Interval history: patient is 60-year-old male MR difficult to communicate, patient has pulled out his IV line and this morning he does not any lab, I spoke with the patient's sister and explained, for patient was initially done monitor the any lab work later BMP was, potassium is 3.6, patient with history severe systolic dysfunction with ejection fraction of 25% and diastolic dysfunction, patient seen by Retail Warehouse Supervisor, patient is treated with IV Lasix 40 mg b.i.d., patient also arrived with atrial fibrillation RVR initially was treated with Cardizem drip seen by cardiology now on Coreg 12.5 mg b.i.d. and the rate is trending, patient with history of noncompliance and unable to afford NOAC, is very high risk discharge the patient on warfarin, [employer] enterprise portal consultant has placed him on high-dose aspirin 325 mg q.day to minimize thromboembolic event, will continue to monitor patient will have a PT OT evaluate the patient and further recommendation to follow (2) CHF (congestive heart failure): Qualifiers: Heart failure chronicity: unspecified Heart failure type: unspecified Qualified Code(s): I50.9 - Heart failure, unspecified Code(s): I50.9 - Heart failure, unspecified Status: Acute Assessment and Plan: Patient has systolic and diastolic failure per echocardiogram with significant cardiomyopathy with an EF of 20-25% -continue Lasix and spironolactone -continue losartan -replace potassium -monitor renal function (3) Dyslipidemia: Code(s): E78.5 - Hyperlipidemia, unspecified Status: Acute Assessment and Plan: Continue atorvastatin (4) Hypertension: Code(s): I10 - Essential (primary) hypertension Status: Acute Assessment and Plan: Continue Coreg and losartan (5) DVT prophylaxis: Code(s): Z29.9 - Encounter for prophylactic measures, unspecified Status: Acute Assessment and Plan: Lovenox switched to Eliquis Subjective Date/time seen: 05/27/21 12:46 Interval history: Interval history: 60-year-old gentleman with past medical history of congestive heart failure, atrial fibrillation presented the ED on 05/24/2021 with complains of shortness of breath and increased swelling in his lower extremities. Patient is noncompliant with medication 05/26/2021: Patient being seen for hospitalist group. Is awake, alert and oriented, able to answer questions sometimes seems to be confused. Complains of some shortness of breath with activity, and lower extremity edema. Denies any chest pain, shortness of breath, abdominal pain, nausea, vomiting. He is tolerating p.o. diet. Patient is hemodynamically stable, afebrile and diuresing well response to diuretics 05/27 Interval history: patient is 60-year-old male MR difficult to communicate, patient has pulled out his IV line and this morning he does not any lab, I spoke with the patient's sister and explained, for patient was initially done monitor the any lab work l
--- NOTE | 2021-05-27 20:19 | PC.NURSE ---
Pt has been refusing telemetry throughout day. Pt agrees to wear telemetry at this time however verbalized extreme discomfort with telemetry leads and states he probably wont keep them on.
[2021-05-28] VITALS (9 sets, daily range): BP systolic 104–144; BP diastolic 50–88; PULSE 67–110; RESP 17–20; TEMP 36.1–36.8; O2SAT 95–100
--- NOTE | 2021-05-28 06:39 | PM.PNCARD ---
Progress Note: A&P Assessment and Plan (1) Atrial fibrillation with rapid ventricular response: Code(s): I48.91 - Unspecified atrial fibrillation Status: Acute Assessment and Plan: Rate controlled with Coreg 12.5 mg BID. [id number] 2 (Hypertension and CHF). He is currently on Lovenox. It appears he was on Warfarin but subtherapeutic INR. Discuss with patient about the importance of needing to check INR regularly on Warfarin, and he does not want to do that. His plan does not cover NOAC including Eliquis. While in hospital will leave him on Lovenox, but upon discharge he will go on Aspirin EC 325 mg daily to decrease risk of cardioembolism, but not ideal compared to Warfarin or NOAC. However, due to noncompliance with INR checking it is safer for him to be on Aspirin instead. (2) CHF (congestive heart failure): Qualifiers: Heart failure chronicity: unspecified Heart failure type: unspecified Qualified Code(s): I50.9 - Heart failure, unspecified Code(s): I50.9 - Heart failure, unspecified Status: Acute Assessment and Plan: Acute on chronic combined systolic and diastolic heart failure. He states he was at [facility] and advised to wear Life Vest to prevent sudden cardiac arrest but he refused it and refusing it now. I also discussed left heart cath as he states he has not had one done but refusing that also. He is on heart failure medications including Coreg, Losartan, Spironolactone. Diurese patient with Lasix 40 mg IV BID. Upon discharge he will need Furosemide 100 mg PO BID. Increase Spironolactone 50 mg daily. (3) Hypertension: Code(s): I10 - Essential (primary) hypertension Status: Acute Assessment and Plan: Stable. (4) Dyslipidemia: Code(s): E78.5 - Hyperlipidemia, unspecified Status: Acute Assessment and Plan: On Atorvastatin. Subjective Date/time seen: 05/28/21 06:39 Denies chest pain or sob. Exam Const: General: cooperative, healthy appearing and comfortable Resp: Auscultation: clear to auscultation bilaterally, no crackles, no rales, no rhonchi and no wheezes Cardio: Jugular venous distension: no JVD Rate: regular rate Rhythm: abnormal rhythm Heart sounds: no murmurs Peripheral pulses: dorsalis pedis present GI: GI Palp: No abdominal tenderness and Yes Soft to palpation Neuro: General: oriented to person, oriented to place and oriented to time Extrem: Right lower extremity: edema Left lower extremity: edema Other: Moderate edema of both legs Objective Data Vital Signs Vital Signs: Vital Signs - 24 hr 05/27/21 09:08 05/27/21 10:25 05/27/21 14:20 Temperature 96.8 F L 96.3 F L Pulse Rate 101 H 102 H 96 Respiratory Rate 16 16 Blood Pressure 133/85 111/76 Pulse Oximetry 99 100 05/27/21 20:00 05/27/21 20:18 05/27/21 22:35 Temperature 97.6 F Pulse Rate 87 91 87 Respiratory Rate 20 Blood Pressure 120/85 Pulse Oximetry 97 05/27/21 23:33 05/28/21 00:00 05/28/21 04:00 Temperature 98.2 F 97.2 F L Pulse Rate 96 110 H 90 Respiratory Rate 18 18 Blood Pressure 130/88 107/87 Pulse Oximetry 95 95 05/28/21 06:04 Temperature 97.0 F L Pulse Rate 90 Respiratory Rate 20 Blood Pressure 144/50 H Pulse Oximetry 95 Intake/Output Intake/Output: Intake & Output 05/25/21 05/26/21 05/27/21 05/28/21 23:59 23:59 23:59 23:59 Intake Total 1027 1830 1480 Output Total 750 4650 2200 1000 Balance 277 -0490 -720 -1000 Meds/Results Medications: Active Medications Generic Name Dose Route Start Last Admin Trade Name Stone PRN Reason Stop Dose Admin Acetaminophen 650 mg 05/24/21 23:40 05/25/21 00:27 Acetaminophen 325 Mg Tablet PO 650 mg Q4H PRN Administration Mild Pain (1-3) or Fever Atorvastatin Calcium 40 mg 05/26/21 09:00 05/27/21 09:07 Atorvastatin 40 Mg Tablet PO 40 mg DAILY ANIA Administration Carvedilol 12.5 mg 05/26/21 09:00 05/27/21 2
[2021-05-28] MEDS: ENOXAPARIN 120 MG/0.8 ML SYRINGE SUB-Q ×2 (08:41→21:18)
[2021-05-28] MEDS: SPIRONOLACTONE 50 MG TABLET PO (08:42)
[2021-05-28] MEDS: MAGNESIUM OXIDE 400 MG TABLET PO ×2 (08:42→17:17)
[2021-05-28] MEDS: LOSARTAN POTASSIUM 25 MG TABLET PO (08:42)
[2021-05-28] MEDS: FUROSEMIDE 40 MG TABLET PO ×2 (08:42→17:17)
[2021-05-28] MEDS: ATORVASTATIN 40 MG TABLET PO (08:42)
[2021-05-28] MEDS: carvediloL 12.5 MG TABLET PO ×2 (08:42→21:15)
--- NOTE | 2021-05-28 11:40 | PM.IMPN ---
Progress Note: A&P Assessment and Plan (1) Atrial fibrillation with rapid ventricular response: Code(s): I48.91 - Unspecified atrial fibrillation Status: Acute Assessment and Plan: Presented with swelling of the lower extremities, was found to be in AFib RVR in the ER with heart rates in the 130s -patient was started on Cardizem infusion and transferred to the ICU, once he arrived to the ICU Cardizem infusion was discontinued as he pulled out his IV line. -patient was started on Coreg by Cardiology which will be increased to 12.5 mg b.i.d. -Lovenox will be switched to Eliquis 5 mg b.i.d. by Cardiology -echocardiogram 05/25/2021 showed LV chamber dimensions morbidly enlarged, LV systolic function is severely reduced at 20-25%. Left ventricle diastolic function is abnormal. Moderate mitral valve regurg, [id number] tricuspid valve regurg, moderate pulmonary hypertension with RVSP of 52 mmHg -following the patient 05/27 Interval history: patient is 60-year-old male MR difficult to communicate, patient has pulled out his IV line and this morning he does not any lab, I spoke with the patient's sister and explained, for patient was initially done monitor the any lab work later BMP was, potassium is 3.6, patient with history severe systolic dysfunction with ejection fraction of 25% and diastolic dysfunction, patient seen by Clerical Proofreader, patient is treated with IV Lasix 40 mg b.i.d., patient also arrived with atrial fibrillation RVR initially was treated with Cardizem drip seen by cardiology now on Coreg 12.5 mg b.i.d. and the rate is trending, patient with history of noncompliance and unable to afford NOAC, is very high risk discharge the patient on warfarin, retail experience specialist has placed him on high-dose aspirin 325 mg q.day to minimize thromboembolic event, will continue to monitor patient will have a PT OT evaluate the patient and further recommendation to follow. 05/28 Interval history: patient is 60-year-old male MR difficult to communicate, patient has pulled out his IV line and this morning he does not any lab,However today patient is more pleasant and states that he will take his medications and follow the instructions however however patient is need LifeVest and cardiac catheterization but is refusing, will continued with medical management and further recommendation to follow. (2) CHF (congestive heart failure): Qualifiers: Heart failure chronicity: unspecified Heart failure type: unspecified Qualified Code(s): I50.9 - Heart failure, unspecified Code(s): I50.9 - Heart failure, unspecified Status: Acute Assessment and Plan: Patient has systolic and diastolic failure per echocardiogram with significant cardiomyopathy with an EF of 20-25% -continue Lasix and spironolactone -continue losartan -replace potassium -monitor renal function (3) Dyslipidemia: Code(s): E78.5 - Hyperlipidemia, unspecified Status: Acute Assessment and Plan: Continue atorvastatin (4) Hypertension: Code(s): I10 - Essential (primary) hypertension Status: Acute Assessment and Plan: Continue Coreg and losartan (5) DVT prophylaxis: Code(s): Z29.9 - Encounter for prophylactic measures, unspecified Status: Acute Assessment and Plan: Lovenox switched to Eliquis Subjective Date/time seen: 05/28/21 11:40 Interval history: Interval history: 60-year-old gentleman with past medical history of congestive heart failure, atrial fibrillation presented the ED on 05/24/2021 with complains of shortness of breath and increased swelling in his lower extremities. Patient is noncompliant with medication 05/26/2021: Patient being seen for hospitalist group. Is awake, alert and oriented, able to answer questions sometimes seems to be confused. Complains of some shortness of breath with activity, and lower extremity edema. Denies any chest pain, s
--- NOTE | 2021-05-28 15:06 | PC.NURSE ---
pt's sister, Eileen Harrell, called while I was at lunch. I returned Eileen's call where she asked what his vitals were and if he was more compliant and less belligerent. I informed her that he was not being belligerent today but per the doctor's report, he was refusing blood draws, labs, et al. I also shared with her the pt's vitals as she requested. She asked to be transferred to pt's room. Before transferring, I went to pt's room to make sure that the phone was within reach and if pt was willing to speak with her. Pt stated that he was not willing to speak with her. I was instructed to tell Eileen that pt was napping and he would speak with her later.
[2021-05-29] VITALS (12 sets, daily range): BP systolic 93–136; BP diastolic 62–94; PULSE 74–103; RESP 16–20; TEMP 36.2–36.4; O2SAT 100
--- NOTE | 2021-05-29 07:31 | PM.PNCARD ---
Progress Note: A&P Assessment and Plan (1) Atrial fibrillation with rapid ventricular response: Code(s): I48.91 - Unspecified atrial fibrillation Status: Acute Assessment and Plan: Rate controlled with Coreg 12.5 mg BID. [id number] 2 (Hypertension and CHF). He is currently on Lovenox. It appears he was on Warfarin but subtherapeutic INR. Discuss with patient about the importance of needing to check INR regularly on Warfarin, and he does not want to do that. His plan does not cover NOAC including Eliquis. While in hospital will leave him on Lovenox, but upon discharge he will go on Aspirin EC 325 mg daily to decrease risk of cardioembolism, but not ideal compared to Warfarin or NOAC. However, due to noncompliance with INR checking it is safer for him to be on Aspirin instead. (2) CHF (congestive heart failure): Qualifiers: Heart failure chronicity: unspecified Heart failure type: unspecified Qualified Code(s): I50.9 - Heart failure, unspecified Code(s): I50.9 - Heart failure, unspecified Status: Acute Assessment and Plan: Acute on chronic combined systolic and diastolic heart failure. He states he was at [facility] and advised to wear Life Vest to prevent sudden cardiac arrest but he refused it and refusing it now. I also discussed left heart cath as he states he has not had one done but refusing that also. He is on heart failure medications including Coreg, Losartan, Spironolactone. Diurese patient with Lasix 40 mg IV BID. Upon discharge he will need Furosemide 100 mg PO BID. Increase Spironolactone 50 mg daily. He is doing physical therapy. May d/c home from cardiology standpoint and f/u with his PCP in 1 week. I'm not sure if he has a pack worker he is following from [facility]. (3) Hypertension: Code(s): I10 - Essential (primary) hypertension Status: Acute Assessment and Plan: Stable. (4) Dyslipidemia: Code(s): E78.5 - Hyperlipidemia, unspecified Status: Acute Assessment and Plan: On Atorvastatin. Subjective Date/time seen: 05/29/21 07:31 Denies chest pain or sob. Exam Const: General: cooperative, healthy appearing and comfortable Resp: Auscultation: clear to auscultation bilaterally, no crackles, no rales, no rhonchi and no wheezes Cardio: Jugular venous distension: no JVD Rate: regular rate Rhythm: abnormal rhythm Heart sounds: no murmurs Peripheral pulses: dorsalis pedis present GI: GI Palp: No abdominal tenderness and Yes Soft to palpation Neuro: General: oriented to person, oriented to place and oriented to time Extrem: Right lower extremity: edema Left lower extremity: edema Other: Moderate edema of both legs Objective Data Vital Signs Vital Signs: Vital Signs - 24 hr 05/28/21 08:42 05/28/21 12:00 05/28/21 16:00 Temperature 97.5 F L 97.8 F Pulse Rate 85 89 88 Respiratory Rate 20 20 Blood Pressure 138/54 L 136/52 L Pulse Oximetry 96 97 05/28/21 19:50 05/28/21 20:00 05/28/21 21:15 Temperature 98 F Pulse Rate 67 88 90 Respiratory Rate 17 Blood Pressure 104/83 Pulse Oximetry 100 05/29/21 00:00 05/29/21 03:07 05/29/21 04:00 Temperature 97.6 F 97.4 F L Pulse Rate 82 87 96 Respiratory Rate 16 17 Blood Pressure 102/70 136/94 H Pulse Oximetry 100 100 Intake/Output Intake/Output: Intake & Output 05/26/21 05/27/21 05/28/21 05/29/21 23:59 23:59 23:59 23:59 Intake Total 1830 1480 880 500 Output Total 4650 2200 1900 800 Balance -2820 -720 -1020 -300 Meds/Results Medications: Active Medications Generic Name Dose Route Start Last Admin Trade Name Freq PRN Reason Stop Dose Admin Acetaminophen 650 mg 05/24/21 23:40 05/25/21 00:27 Acetaminophen 325 Mg Tablet PO 650 mg Q4H PRN Administration Mild Pain (1-3) or Fever Atorvastatin Calcium 40 mg 05/26/21 09:00 05/28/21 08:42 Atorvastatin 40 Mg Tablet PO 40 mg DAILY ANIA
[2021-05-29] MEDS: LOSARTAN POTASSIUM 25 MG TABLET PO (08:19)
[2021-05-29] MEDS: carvediloL 12.5 MG TABLET PO (08:20)
[2021-05-29] MEDS: ATORVASTATIN 40 MG TABLET PO (08:20)
[2021-05-29] MEDS: ENOXAPARIN 120 MG/0.8 ML SYRINGE SUB-Q (08:20)
[2021-05-29] MEDS: FUROSEMIDE 40 MG TABLET PO ×2 (08:20→17:11)
[2021-05-29] MEDS: SPIRONOLACTONE 50 MG TABLET PO (08:21)
[2021-05-29] MEDS: MAGNESIUM OXIDE 400 MG TABLET PO ×2 (08:21→17:12)
--- NOTE | 2021-05-29 11:44 | PM.IMPN ---
Progress Note: A&P Assessment and Plan (1) Atrial fibrillation with rapid ventricular response: Code(s): I48.91 - Unspecified atrial fibrillation Status: Acute Assessment and Plan: Presented with swelling of the lower extremities, was found to be in AFib RVR in the ER with heart rates in the 130s -patient was started on Cardizem infusion and transferred to the ICU, once he arrived to the ICU Cardizem infusion was discontinued as he pulled out his IV line. -patient was started on Coreg by Cardiology which will be increased to 12.5 mg b.i.d. -Lovenox will be switched to ASA on dc as his insurance does not cover Eliquis. - pt is some non compliant to medications and refuses life vest -echocardiogram 05/25/2021 showed LV chamber dimensions morbidly enlarged, LV systolic function is severely reduced at 20-25%. Left ventricle diastolic function is abnormal. Moderate mitral valve regurg, [id number] tricuspid valve regurg, moderate pulmonary hypertension with RVSP of 52 mmHg -Cardiology following the patient (2) CHF (congestive heart failure): Qualifiers: Heart failure chronicity: unspecified Heart failure type: unspecified Qualified Code(s): I50.9 - Heart failure, unspecified Code(s): I50.9 - Heart failure, unspecified Status: Acute Assessment and Plan: Patient has systolic and diastolic failure per echocardiogram with significant cardiomyopathy with an EF of 20-25% -continue Lasix and spironolactone -continue losartan -replace potassium -monitor renal function (3) Dyslipidemia: Code(s): E78.5 - Hyperlipidemia, unspecified Status: Acute Assessment and Plan: Continue atorvastatin (4) Hypertension: Code(s): I10 - Essential (primary) hypertension Status: Acute Assessment and Plan: Continue Coreg and losartan (5) DVT prophylaxis: Code(s): Z29.9 - Encounter for prophylactic measures, unspecified Status: Acute Assessment and Plan: Lovenox Subjective Date/time seen: 05/29/21 11:44 Interval history: Interval history: 60-year-old gentleman with past medical history of congestive heart failure, atrial fibrillation presented the ED on 05/24/2021 with complains of shortness of breath and increased swelling in his lower extremities. Patient is noncompliant with medication and refuses life vest. Pt legs are still very swollen pt is in AF not running fast. Pt seen by cardiology. Review of Systems Review of Systems: All systems reviewed & are unremarkable except as noted in HPI and below Exam Narrative: Patient is comfortable,pleasant. HEENT: eyes are clear and none icteric LUNGS: normal respiratory effort ABDO: obese and distended Lower extremities: 4+ edema BL in both lower leg, oozing liquid SKIN: nonjaundiced Neuro: agitated. Objective Data Vital Signs Vital Signs: Vital Signs - 24 hr 05/28/21 12:00 05/28/21 16:00 05/28/21 19:50 Temperature 36.4 C L 36.6 C 36.6 C Pulse Rate 89 88 67 Respiratory Rate 20 20 17 Blood Pressure 138/54 L 136/52 L 104/83 Pulse Oximetry 96 97 100 05/28/21 20:00 05/28/21 21:15 05/29/21 00:00 Temperature 36.4 C Pulse Rate 88 90 82 Respiratory Rate 16 Blood Pressure 102/70 Pulse Oximetry 100 05/29/21 03:07 05/29/21 04:00 05/29/21 08:00 Temperature 36.3 C L Pulse Rate 87 96 102 H Respiratory Rate 17 Blood Pressure 136/94 H Pulse Oximetry 100 05/29/21 08:20 05/29/21 10:00 Temperature 36.2 C L Pulse Rate 102 H 103 H Respiratory Rate 18 Blood Pressure 93/66 L Pulse Oximetry 100 Intake/Output Intake/Output: Intake & Output 05/26/21 05/27/21 05/28/21 05/29/21 23:59 23:59 23:59 23:59 Intake Total 1830 9119 697 1212 Output Total 4650 2200 1900 800 Balance -2820 -720 -1020 300 Meds/Results Medications: Active Medications Generic Name Dose Route Start Last Admin Trade Name Freq PRN Reason Stop Dose Admin Aceta
--- NOTE | 2021-05-29 13:03 | PCPTNOTE ---
On 05/29/21, the student, Eleno Smart, provided care and completed [facility] documentation on this patient. I have reviewed the student's documentation and agree with the findings.
--- NOTE | 2021-05-29 22:25 | PC.NURSE ---
While trying to administer evening medication patient stated he is not taking his medication this evening and is not going to wear his manager monitoring. Informed Shanique Jaramillo.
--- NOTE | 2021-05-29 23:09 | PC.NURSE ---
Patient stated he wants to leave, I brought the AMA form into room for patient to sign and he said he wants to stay till tomorrow. He is refusing to take evening medications and to wear cardiac monitor. Will continue to monitor.
--- NOTE | 2021-05-29 23:16 | PC.NURSE ---
Patient has been known to make racial comments by multiple staff. RN Ca Peter entered the room and patient told Ca that white girl wants me to wear the heart monitor and I don't want to wear it because staff is spying on me with the heart monitor, also stated he didn't want to take heart medication because it makes him dizzy . However patient didn't mention it to me his RN when I was in there trying to give him his medication that it makes him dizzy. Will continue to monitor.
[2021-05-30 03:27] VITALS: BP 115/94; PULSE 93; RESP 17; TEMP 36.1; O2SAT 95
--- NOTE | 2021-05-30 07:55 | PM.PNCARD ---
Progress Note: A&P Assessment and Plan (1) Atrial fibrillation with rapid ventricular response: Code(s): I48.91 - Unspecified atrial fibrillation Status: Acute Assessment and Plan: Rate controlled with Coreg 12.5 mg BID. [id number] 2 (Hypertension and CHF). He is currently on Lovenox. It appears he was on Warfarin but subtherapeutic INR. Discuss with patient about the importance of needing to check INR regularly on Warfarin, and he does not want to do that. His plan does not cover NOAC including Eliquis. While in hospital will leave him on Lovenox, but upon discharge he will go on Aspirin EC 325 mg daily to decrease risk of cardioembolism, but not ideal compared to Warfarin or NOAC. However, due to noncompliance with INR checking it is safer for him to be on Aspirin instead. (2) CHF (congestive heart failure): Qualifiers: Heart failure chronicity: unspecified Heart failure type: unspecified Qualified Code(s): I50.9 - Heart failure, unspecified Code(s): I50.9 - Heart failure, unspecified Status: Acute Assessment and Plan: Acute on chronic combined systolic and diastolic heart failure. He states he was at [facility] and advised to wear Life Vest to prevent sudden cardiac arrest but he refused it and refusing it now. I also discussed left heart cath as he states he has not had one done but refusing that also. He is on heart failure medications including Coreg, Losartan, Spironolactone. Diurese patient with Lasix 40 mg IV BID. Upon discharge he will need Furosemide 100 mg PO BID. Increase Spironolactone 50 mg daily. He is doing physical therapy. May d/c home from cardiology standpoint and f/u with his PCP in 1 week. I'm not sure if he has a oxidation engineer he is following from [facility]. Will sign off and please call with any questions. (3) Hypertension: Code(s): I10 - Essential (primary) hypertension Status: Acute Assessment and Plan: Stable. (4) Dyslipidemia: Code(s): E78.5 - Hyperlipidemia, unspecified Status: Acute Assessment and Plan: On Atorvastatin. Subjective Date/time seen: 05/30/21 07:55 Denies chest pain or sob. Exam Const: General: cooperative, healthy appearing and comfortable Resp: Auscultation: clear to auscultation bilaterally, no crackles, no rales, no rhonchi and no wheezes Cardio: Jugular venous distension: no JVD Rate: regular rate Rhythm: abnormal rhythm Heart sounds: no murmurs Peripheral pulses: dorsalis pedis present GI: GI Palp: No abdominal tenderness and Yes Soft to palpation Neuro: General: oriented to person, oriented to place and oriented to time Extrem: Right lower extremity: edema Left lower extremity: edema Other: Moderate edema of both legs Objective Data Vital Signs Vital Signs: Vital Signs - 24 hr 05/29/21 08:00 05/29/21 08:20 05/29/21 10:00 Temperature 97.2 F L Pulse Rate 102 H 102 H 103 H Respiratory Rate 18 Blood Pressure 93/66 L Pulse Oximetry 100 05/29/21 12:00 05/29/21 14:00 05/29/21 16:00 Temperature 97.1 F L Pulse Rate 89 90 89 Respiratory Rate 20 Blood Pressure 121/79 Pulse Oximetry 100 05/29/21 18:00 05/29/21 19:38 05/29/21 20:00 Temperature 97.2 F L 97.3 F L Pulse Rate 74 98 89 Respiratory Rate 20 18 Blood Pressure 114/62 108/73 Pulse Oximetry 100 100 05/30/21 03:27 Temperature 96.9 F L Pulse Rate 93 Respiratory Rate 17 Blood Pressure 115/94 H Pulse Oximetry 95 Intake/Output Intake/Output: Intake & Output 05/27/21 05/28/21 05/29/21 05/30/21 23:59 23:59 23:59 23:59 Intake Total 5136 029 5725 240 Output Total 2200 1900 1950 500 Balance -720 -1020 -610 -260 Meds/Results Medications: Active Medications Generic Name Dose Route Start Last Admin Trade Name Freq PRN Reason Stop Dose Admin Acetaminophen 650 mg 05/24/21 23:40 05/25/21 00:27 Acetaminophen 325 Mg Tablet PO 650 mg Q4
[2021-05-30 08:00] VITALS: BP 104/75; RESP 20
[2021-05-30] MEDS: MAGNESIUM OXIDE 400 MG TABLET PO (08:54)
[2021-05-30] MEDS: SPIRONOLACTONE 50 MG TABLET PO (08:54)
[2021-05-30] MEDS: FUROSEMIDE 40 MG TABLET PO (08:54)
--- NOTE | 2021-05-30 09:15 | PC.NURSE ---
Patient refusing to take medications this AM and continues to refuse wearing heart monitor. Patient also refuses for vitals to be taken. Patient became very angry with staff while trying to assist him up to eat his breakfast. Patient refuses to sit in chair with chair alarm, and staff is unable to arm bed alarm due to patient sitting on the side of the bed. Patient will not have conversation about this, just continues to state no, get out of my room. leave me alone. Staff will sit at patient bedside to ensure safety of the patient while he continues to refuse safety precautions. Patient denies RN to do anything for him at this time. MD notified. Will continue to monitor.
--- NOTE | 2021-05-30 09:21 | PM.DS ---
DS: Admitting Diagnosis Discharge Date 05/30/2021 Admitting Diagnosis SOB leg edema DS: Discharge Diagnosis Discharge Diagnosis (1) Atrial fibrillation with rapid ventricular response: Code(s): I48.91 - Unspecified atrial fibrillation Status: Acute Assessment and Plan: Presented with swelling of the lower extremities, was found to be in AFib RVR in the ER with heart rates in the 130s -patient was started on Cardizem infusion and transferred to the ICU, once he arrived to the ICU Cardizem infusion was discontinued as he pulled out his IV line. IV lasix was discontinued and changed to oral. -patient was started on Coreg by Cardiology which will be increased to 12.5 mg b.i.d. -Lovenox will be switched to ASA on dc as his insurance does not cover Eliquis. - pt is some non compliant to medications and refuses life vest -echocardiogram 05/25/2021 showed LV chamber dimensions morbidly enlarged, LV systolic function is severely reduced at 20-25%. Left ventricle diastolic function is abnormal. Moderate mitral valve regurg, [id number] tricuspid valve regurg, moderate pulmonary hypertension with RVSP of 52 mmHg -Cardiology following the patient, pt to be discharged on coreg, losartan spironolactone, lasix and ASA (2) CHF (congestive heart failure): Qualifiers: Heart failure chronicity: unspecified Heart failure type: unspecified Qualified Code(s): I50.9 - Heart failure, unspecified Code(s): I50.9 - Heart failure, unspecified Status: Acute Assessment and Plan: Patient has systolic and diastolic failure per echocardiogram with significant cardiomyopathy with an EF of 20-25% -continue Lasix and spironolactone -continue losartan pt refuses life vest and is non compliant to medications, adviced to be careful with medications. (3) Dyslipidemia: Code(s): E78.5 - Hyperlipidemia, unspecified Status: Acute Assessment and Plan: Continue atorvastatin (4) Hypertension: Code(s): I10 - Essential (primary) hypertension Status: Acute Assessment and Plan: Continue Coreg and losartan (5) DVT prophylaxis: Code(s): Z29.9 - Encounter for prophylactic measures, unspecified Status: Acute Assessment and Plan: Lovenox in hospital, ASA at home pt is non compliant warfarin would be difficult to take because of inr monitoring pts insuance does not cover eliquis. DS: Summary Hospital Course Hospital Course: 60-year-old gentleman with past medical history of congestive heart failure, ef 20% atrial fibrillation presented the ED on 05/24/2021 with complains of shortness of breath and increased swelling in his lower extremities. Patient is noncompliant with medication and refuses life vest. Pt legs are still very swollen but is refusing his medications, pulled out iv, ready for discharge on oral medications. Compliance to medications advised. Time Spent with Patient Time attestation: Total time spent providing and/or coordinating discharge services: 45 minutes on day of dischrage Exam Narrative: Patient is stable, Morbidly obese HEENT: eyes are clear and none icteric LUNGS: normal respiratory effort ABDO: obese and distended Lower extremities: 3+ edema BL in both lower legs Neuro: Refusing medications today Discharge Plan Discharge Attending physician on discharge: Kelly Reyna Consulting providers: Luis Moran ; Casper Azul Discharging Clinician: Kelly Reyna Anticipated Discharge Date/Time: 05/30/21 09:16 Patient Disposition: Home, Self-Care Activity: as tolerated Diet: heart healthy Discharge Instructions: COMPLIANCE TO MEDICATIONS CONTINUE TO FOLLOW UP WITH [facility]. Patient Instructions: Antibiotic Form, Safe Use of Anticoagulants (GEN), Blood Thinners (GEN) Stand Alone Forms: General Discharge Information Follow-up/Referrals: Casper Azul DO [Physician] - Luis Moran MD [Physi
[2021-05-30 10:19] VITALS: PULSE 93
[2021-05-30] MEDS: carvediloL 12.5 MG TABLET PO (10:19)
[2021-05-30] MEDS: LOSARTAN POTASSIUM 25 MG TABLET PO (10:19)
[2021-05-30] MEDS: ATORVASTATIN 40 MG TABLET PO (10:19)
[2021-05-30 12:00] VITALS: BP 104/69; PULSE 88; RESP 20; TEMP 36.2; O2SAT 100
== END 2021-05-30 15:40 | disposition home or self-care (01) | DRG 291 ==
LOC: ANHED 21:27 → ANHICU 23:11 → ANH2MED 05-27 07:18 → ANHICU 06-01 14:14
PROVIDERS: Emergency Medicine; Family Medicine; Internal Medicine; Internal Medicine Cardiovascular Disease; Admitting Provider Internal Medicine; Emergency Provider Emergency Medicine; Visit Provider Family Medicine
DX: I11.0 Hypertensive heart disease with heart failure (principal); I50.43 Acute on chronic combined systolic (congestive) and diastolic (congestive) heart failure; I48.91 Unspecified atrial fibrillation; E78.5 Hyperlipidemia, unspecified; Z79.01 Long term (current) use of anticoagulants; Z79.899 Other long term (current) drug therapy; Z87.891 Personal history of nicotine dependence; Z91.14 Patient's other noncompliance with medication regimen
CPT/HCPCS: 36415; 36569; 71046; 80048; 80053; 83735; 83880; 84100; 84484; 85025; 85610; 85730; 93005; 93306; 96365; 96366; 96372; 96375; 97110; 97161; 97165; 97530; 97535; 99285; A9270; C1751; G0378; J1650; J1940; J3475

== ENCOUNTER 2021-09-18 08:39 | Inpatient (IN) | payer MEDICARE, MEDICAID, SELFPAY ==
[2021-09-18] VITALS (7 sets, daily range): BP systolic 105–141; BP diastolic 81–95; PULSE 84–102; RESP 18–20; TEMP 36.8–36.9; O2SAT 97–99; BMI 29.2
--- NOTE | ~2021-09-18 | US_ITS ---
EXAMINATION: US venous doppler [facility] DATE: 09/18/2021 13:44 INDICATION: Lower limb swelling. TECHNIQUE: Grayscale ultrasound images without and with compression and Doppler ultrasound images of the bilateral lower extremity veins were obtained. COMPARISON: None. FINDINGS: The visualized portions of right common femoral vein, profunda (deep) femoral vein, femoral vein, pop liteal vein, peroneal veins, posterior tibial veins, and greater saphenous vein outflow are patent. The visualized portions of left common femoral vein, profunda femoral vein, femoral vein, popliteal v ein, peroneal veins, posterior tibial veins, and greater saphenous vein outflow are patent. IMPRESSION: 1. No deep venous thrombosis. Reviewed, dictated and finalized at location A. DING CUSTODIAN
--- NOTE | ~2021-09-18 | XR_ITS ---
EXAMINATION: XR chest 1V portable EXAM DATE: 09/18/2021 09:10 INDICATION: Fever, bilateral leg swelling. TECHNIQUE: Portable AP frontal chest x-ray was obtained. Comparison is made to prior examination from 05/24/2021. FINDINGS: Small bilateral pleural effusions. There is moderate cardiomegaly. Possible mild pulmonary edema. Some linear atelectasis. No confluent consolidation or pneumothorax. There are mild bony degen erative changes. Similar appearance on prior study. IMPRESSION: Findings consistent with mild CHF exacerbation. Reviewed, dictated and finalized at location A. EXPERT
--- NOTE | 2021-09-18 09:03 | ED.GENADULT ---
HPI - General Adult General Chief complaint: Weakness Stated complaint: Fever, weakness Source: patient and RN notes reviewed History of Present Illness HPI narrative: Patient is a 60 y/o male sent here from [place] for fever and weakness. Patient reportedly had a temp of 102 earlier today. He reportedly had low BP. He was getting antibiotics for leg cellulitis. He complains of 9/10 left leg pain and mild SOB. Related Data Home Medications Medication Instructions Recorded Confirmed acetaminophen 650 mg PO Q6H PRN 09/18/21 apixaban 5 mg PO BID 09/18/21 aripiprazole 10 mg PO HS 09/18/21 bisacodyl 10 mg RECTAL DAILY PRN 09/18/21 furosemide 40 mg PO DAILY 09/18/21 gabapentin 300 mg PO TID 09/18/21 lisinopril 5 mg PO DAILY 09/18/21 magnesium hydroxide [Milk of 400 mg PO DAILY PRN 09/18/21 Magnesia] magnesium oxide 400 mg PO BID 09/18/21 Allergies Allergy/AdvReac Type Severity Reaction Status Date / Time No Known Allergies Allergy Verified 09/18/21 09:19 Review of Systems Constitutional: Constitutional: Denies chills, Reports fever(s), Denies headache(s) and Denies weakness Eyes: Eyes: Denies blurry vision ENT: Denies headache(s) and Denies neck pain Cardiovascular: Cardiovascular: Denies chest pain and Denies dyspnea Respiratory: Respiratory: Denies cough and Reports dyspnea Gastrointestinal: Gastrointestinal: Denies abdominal pain, Denies diarrhea, Denies nausea and Denies vomiting Genitourinary: Genitourinary: Denies hematuria and Denies dysuria Musculoskeletal: Musculoskeletal: Reports as per HPI, Denies back pain, Denies neck pain and Reports other (+ left leg pain) Neurologic: Denies headache(s) and Denies weakness [facility] Past Medical History Medical History (Updated 09/18/21 @ 16:22 by Key Danielle MD) CHF (congestive heart failure) Family History Family History (Updated 05/25/21 @ 00:52 by Sharath Swanson RN) Father Cancer of lung Hypertension Mother Cancer, colon Diabetes mellitus Hypertension Sibling Diabetes mellitus Hypertension Social History Social History (Updated 05/24/21 @ 20:03 by Omar Medina DO) Years smoked: 40 Smoking status: Former smoker Alcohol intake: former Substance use: former Gender identity (if verbalized by the patient): Male Sexual Orientation (if Verbalized by the Patient): Straight or Heterosexual Spiritual care concerns: No Exam Const: General: no acute distress and well developed Orientation/consciousness: oriented to person, oriented to place, oriented to time and patient oriented x3 HENMT: Head: normocephalic Ears: external ears normal General nose exam: Normal external nose present Eyes: General: appearance normal, both eyes and all related structures Conjunctivae: conjunctivae normal Neck: Neck: normal visual inspection and full ROM Chest: Chest palpation & inspection: normal inspection of the chest and no tenderness Resp: Effort & Inspection: normal respiratory effort Auscultation: clear to auscultation bilaterally Cardio: Rate: regular rate Rhythm: regular rhythm GI: GI Palp: No abdominal tenderness and Yes Soft to palpation Skin: General skin exam: normal color and turgor normal Neuro: General: oriented to person, oriented to place, oriented to time and patient oriented x3 Cognition (Neuro): normal cognition Extrem: General: full ROM and edema bilateral Psych: Appearance: grossly normal Mental Status: mental status grossly normal Affect: normal affect Course Consultations Consultation #1: Discussed with [facility], who agrees to admit. Date: 09/18/21 Time: 13:02 Vital Signs Vital signs: Vital Signs Temperature 36.8 C 09/18/21 08:40 Pulse Rate 102 H 09/18/21 08:40 Respiratory Rate 18 09/18/21 08:40 Blood Pressure 105/81 09/18/21 08:40 Pulse Oximetry 99 09/18/21 08:40 Temperature 36.9 C 09/18/21 12:30 Pulse Rate 88 09/18/21 14:19 Respiratory Rate 18
[2021-09-18 09:47] LABS: Alanine Aminotransferase 18 U/L (4-50); Albumin Level 3.2 g/dL (3.5-5.1); Alkaline Phosphatase 107 U/L (38-126); Anion Gap 6 mmol/L (8-16); Aspartate Amino Transferase 32 U/L (17-59); Bilirubin,Total 1.4 mg/dL (0.2-1.3); Blood Urea Nitrogen 11 mg/dL (9-20); Calcium 9.1 mg/dL (8.4-10.2); Carbon Dioxide 27 mmol/L (22-30); Chloride 103 mmol/L (98-107); Estimated CRCL calculation 109 ml/min; Estimated Glomerular Filt Rate > 60; Glucose 94 mg/dL (65-110); Potassium 3.9 mmol/L (3.4-5.0); Sodium 136 mmol/L (137-145)
[2021-09-18 09:49] LABS: Basophils Percent Auto 0.4 % (0.2-1.2); Eosinophils Absolute Auto 0.3 K/mm3 (0-0.3); Eosinophils Percent Auto 3.6 % (0-4.4); Hemoglobin 11.5 g/dL (14.0-18.0); Immature Granulocyte Absolute 0.02 K/mm3 (0.00-0.031); Immature Granulocyte Percent A 0.3 % (0-0.5); Lymphocytes Absolute Auto 1.43 K/mm3 (0.9-3.2); Lymphocytes Percent Auto 20.4 % (18.3-44.2); Mean Corpuscular HGB Conc 32.9 g/dl (32-36); Mean Corpuscular Hemoglobin 34.3 pg (26-34); Mean Corpuscular Volume 104.5 fl (80-100); Monocytes Absolute Auto 0.8 K/mm3 (0.1-0.6); Monocytes Percent Auto 11.4 % (2.6-8.5); Neutrophils Absolute Auto 4.5 K/mm3 (1.3-6.7); Neutrophils Percent Auto 63.9 % (45.5-73.1); Platelet Count Result 265 k/mm3 (150-375); Red Blood Count 3.35 M/mm3 (4.6-6.20)
--- NOTE | 2021-09-18 10:09 | PC.NURSE ---
Patient refusing additional lab draw.
[2021-09-18 10:10] LABS: SARS-CoV-2 RNA PCR Positive
--- NOTE | 2021-09-18 11:00 | PC.NURSE ---
Patient agreeable to lab draw and UCS. Patient provided urinal
[2021-09-18 11:34] LABS: NT Pro B Type Natriuretic Pept 6300 pg/mL (5-100)
--- NOTE | 2021-09-18 12:39 | ECG_ITS ---
Measurements Intervals [place] Rate: 91 P: MA: 0 QRS: 90 QRSD: 100 T: 29 QT: 369 QTc: 454 Interpretive Statements ATRIAL FIBRILLATION DELAYED PRECORDIAL R/S TRANSITION BASELINE ARTIFACT- I, II, AVR ABNORMAL ECG Electronically Signed On 09-18-2021 13:20:59 COMPLIANCE ADMINISTRATOR by Casper Azul D.O.
[2021-09-18] MEDS: FUROSEMIDE INJ 40 MG/4 ML VIAL IV PUSH (13:04)
--- NOTE | 2021-09-18 13:45 | PC.NURSE ---
Patient unable to utilize provided urinal. Patient stated he couldnt get to the urinal cause it all kept coming out so patient utilized his depends. Patient cleaned, dressed, and clean linen applied. UCS obtained.
--- NOTE | 2021-09-18 14:18 | PC.NURSE ---
Patient states he removed his IV due to it being irritated. Patient informed of preference of IV placement for admitted patients. Patient states he does not want one to be placed at this time. Charge informed of patients decision. Patient denies further needs.
[2021-09-18 14:23] LABS: Add Urine Microscopic? YES; Appearance Urine Clear (Clear); Bilirubin Urine Negative (Negative); Blood Urine Negative (Negative); Color Urine Straw (Yellow); Glucose Urine UA Negative (Negative); Ketones Urine Negative (Negative); Leukocyte Esterase Ur Trace LEU/UL (Negative); Nitrate Urine Negative (Negative); Protein Urine Negative (Negative); RBC Urine 0-2 /hpf (0-2); Specific Grav Ur 1.006 (1.001-1.035); Urobilinogen Urine Negative mg/dL (<2.0); WBC Urine 0-3 /hpf
--- NOTE | 2021-09-18 15:30 | PM.IMHP ---
H&P: HPI History of Present Illness Date/Time: 09/18/21 15:30 Chief Complaint: Abnormal vital signs. Narrative: This is a 60-year-old male with atrial fibrillation on long-term anticoagulation, congestive heart failure, hypertension, and depression who presented to the emergency department via EMS for evaluation of abnormal vital signs. He has been at a local rehab facility for several weeks following a hospitalization for what sounds like CHF, lower extremity cellulitis, and weakness. Today he was discharged home and routine vital signs obtained during the discharge process were abnormal and he was sent to the ER for evaluation. According to EMS documentation the patient had a fever with low blood pressures and increased heart rate. The patient notes that his roommate tested positive for COVID-19 in fact the patient tested positive for SARS-CoV-2 by PCR today. Aside from a mild, nonproductive cough and generalized malaise he really has no complaints. He specifically denies fever, sinus congestion, sore throat, chest pain, pleuritic pain, shortness of breath, anosmia, dysgeusia, nausea, vomiting, and diarrhea. He did not receive the COVID vaccination. Review of Systems Review of Systems: Twelve systems were reviewed. Patient reports discomfort in his legs though he attributes that to his chronic lower extremity edema. He denies history of venous thromboembolism. No dysuria. Except as documented, all other systems were reviewed and are negative. [facility] Past Medical History Medical History (Updated 09/18/21 @ 20:57 by Shanique Jaramillo PA-C) Arthritis Atrial fibrillation Chronic anticoagulation Congestive heart failure Depression Surgical History Surgical History (Updated 09/18/21 @ 20:51 by Shanique Jaramillo PA-C) No history of major surgery within 1 month Family History Family History Father Cancer of lung Hypertension Mother Cancer, colon Diabetes mellitus Hypertension Sibling Diabetes mellitus Hypertension Social History Social History (Updated 09/18/21 @ 20:53 by Shanique Jaramillo PA-C) Social History: Surrogate decision maker: Eileen Harrell, . Code status: Full code. Smoking packs per day: 0.5 Smoking cigarettes per day: 10.0 Years smoked: 40 Smoking pack-years: 20.00 Smoking status: Former smoker Tobacco type: cigarettes Alcohol intake: former Substance use: never Additional living arrangements comments: Lives alone in [place]. Additional occupation/education comments: Disabled. Meds Home Medications and Allergies Home Medications Medication Instructions Recorded Confirmed Type acetaminophen 650 mg PO Q6H PRN 09/18/21 09/18/21 History apixaban 5 mg PO BID 09/18/21 09/18/21 History aripiprazole 10 mg PO HS 09/18/21 09/18/21 History bisacodyl 10 mg RECTAL DAILY PRN 09/18/21 09/18/21 History carvedilol 3.125 mg PO Q12H 09/18/21 09/18/21 History furosemide 40 mg PO DAILY 09/18/21 09/18/21 History gabapentin 300 mg PO Q8H 09/18/21 09/18/21 History lisinopril 5 mg PO DAILY 09/18/21 09/18/21 History magnesium citrate 300 ml PO DAILY PRN 09/18/21 09/18/21 History magnesium hydroxide [Milk of 400 mg PO DAILY PRN 09/18/21 09/18/21 History Magnesia] magnesium oxide 400 mg PO BID 09/18/21 09/18/21 History sodium phosphates [Fleet Enema] 197 ml RECTAL DAILY PRN 09/18/21 09/18/21 History Allergies Allergy/AdvReac Type Severity Reaction Status Date / Time No Known Allergies Allergy Verified 09/18/21 16:36 Vital Signs Vital Signs - 24 hr 09/18/21 08:40 09/18/21 12:30 09/18/21 14:14 Temperature 98.2 F 98.5 F Pulse Rate 102 H 90 88 Respiratory Rate 18 18 18 Blood Pressure 105/81 140/91 H Pulse Oximetry 99 97 98 09/18/21 14:19 09/18/21 16:26 Temperature 98.3 F Pulse Rate 88 90 Respiratory Rate 18 Blood Pressure 141/95 H Pulse Oximetry 98 Exam Narrative: General: We
--- NOTE | 2021-09-18 16:10 | PC.NURSE ---
This patient, Chau Harrell, was admitted to [facility] Surg Room 313-01. Patient/family oriented to hospital policies and general routines including ID bracelet, bed and alarms, visiting hours, pain management, procedures, bathroom and other care routines, personal items, smoking policy, room service/diet, and visiting hours.Report received from Amadeo REED. Information on how to activate the Rapid Response Team has been discussed. Patient/Family are encouraged to report perceived risks to care and to ask questions if they do not understand what they are told or what they should do.
[2021-09-18] MEDS: GABAPENTIN 300 MG CAPSULE PO (22:39)
[2021-09-18] MEDS: ARIPiprazole 10 MG TABLET PO (22:40)
[2021-09-18] MEDS: carvediloL 3.125 MG TABLET PO (22:40)
[2021-09-18] MEDS: ACETAMINOPHEN 325 MG TABLET 650 MG PO (22:49)
[2021-09-18 22:59] LABS: Iron 36 ug/dL (49-181)
[2021-09-18 23:08] LABS: Percent Iron Saturation 16 % (20-50)
[2021-09-18 23:37] LABS: Folic Acid 8.2 ng/mL (2.76->20)
[2021-09-19] VITALS (8 sets, daily range): BP systolic 101–108; BP diastolic 63–74; PULSE 53–94; RESP 16–20; TEMP 36.3–37.4; O2SAT 98–100
[2021-09-19] MEDS: GABAPENTIN 300 MG CAPSULE PO ×3 (05:16→22:22)
[2021-09-19] MEDS: carvediloL 3.125 MG TABLET PO ×2 (09:42→20:39)
[2021-09-19] MEDS: FUROSEMIDE 40 MG TABLET PO (09:43)
[2021-09-19] MEDS: APIXABAN 5 MG TABLET PO ×2 (09:43→17:11)
[2021-09-19] MEDS: lisinopriL 5 MG TABLET PO (09:43)
[2021-09-19] MEDS: ACETAMINOPHEN 325 MG TABLET 650 MG PO ×2 (10:53→18:10)
--- NOTE | 2021-09-19 11:52 | P.PNIM_ITS ---
Progress Note: A&P Assessment and Plan (1) COVID-19 virus infection: Code(s): U07.1 - COVID-19 Status: Acute Assessment and Plan: Reports roommate rehab was COVID positive. Positive COVID test on 09/18/2021 * Minimal symptoms aside from low-grade fever prior to presentation. Afebrile this admission * Supportive care. * Patient has no oxygen requirements. Not a candidate for dexamethasone or remdesivir * No evidence of pneumonia on CXR * He has not been vaccinated for COVID-19 * Continue isolation precautions (2) Congestive heart failure: Code(s): I50.9 - Heart failure, unspecified Status: Acute Assessment and Plan: CXR showed moderate cardiomegaly with possible mild pulmonary edema * BNP 6300 * Noted to have faint crackles initially by previous provider * Received 1 time dose IV Lasix 40 mg. * No evidence of volume overload on my exam today * Continue home furosemide 40 mg p.o. daily (3) Atrial fibrillation: Code(s): I48.91 - Unspecified atrial fibrillation Status: Acute Assessment and Plan: In AFib/ RVR on arrival to the ER, now rate controlled after defervescence. * Continue carvedilol for rate control. * Continue Eliquis for stroke prophylaxis (4) Hypertension: Code(s): I10 - Essential (primary) hypertension Status: Acute Assessment and Plan: Blood pressures are reviewed and have been well controlled * Last BP 103/73 * Continue carvedilol and lisinopril * Monitor blood pressure trends (5) Macrocytic anemia: Code(s): D53.9 - Nutritional anemia, unspecified Status: Acute Assessment and Plan: Mild anemia with hemoglobin 11.5 * Iron studies reviewed, patient has decreased iron stores and will supplement. * B12 and folate are within normal limits * Refused lab draws today (6) Need for discharge planning: Status: Acute Assessment and Plan: Patient does not feel he can safely return home * Wants to go to rehab. His previous rehab will not accept him back * Will proceed with PT/OT evals * Care coordination following to consider alternative rehab placement Subjective Date/time seen: 09/19/21 11:52 Interval history: Date of service: 09/19/2021 Chau blount is a 60-year-old male with a history of CHF, atrial fibrillation on chronic anticoagulation, arthritis, depression who is seen in follow-up for COVID-19 and generalized weakness. The patient had been at [facility] for rehabilitation following hospitalization for CHF, lower extremity cellulitis, and weakness at [facility]. On 09/18/2021 the patient was scheduled to be discharged from [facility] as he had not been cooperating with therapy when he was found to have a fever and was sent to the ED for evaluation. On my encounter today the patient is feeling well and he offers no complaints. I began to ask him about where he was in rehab and about how he was scheduled to go home and he stated ?do not twist my words? I explained to him that I was attempting to gather information to best help him and he understood. He was bothered that I was interrupting his breakfast time. He tells me he cannot safely go home because he cannot walk. He wants to go to rehab to help build up his strength in his legs but he does not want to go back to [facility]. Per care coordination, [facility] will not allow the patient to come back to the facility due to poor cooperation with rehab. Additionally, the patient would like ?a professional? to come in to clean up the skin on his feet while he
--- NOTE | 2021-09-19 11:52 | PM.IMPN ---
Progress Note: A&P Assessment and Plan (1) COVID-19 virus infection: Code(s): U07.1 - COVID-19 Status: Acute Assessment and Plan: Reports roommate rehab was COVID positive. Positive COVID test on 09/18/2021 Minimal symptoms aside from low-grade fever prior to presentation. Afebrile this admission Supportive care. Patient has no oxygen requirements. Not a candidate for dexamethasone or remdesivir No evidence of pneumonia on CXR He has not been vaccinated for COVID-19 Continue isolation precautions (2) Congestive heart failure: Code(s): I50.9 - Heart failure, unspecified Status: Acute Assessment and Plan: CXR showed moderate cardiomegaly with possible mild pulmonary edema BNP 6300 Noted to have faint crackles initially by previous provider Received 1 time dose IV Lasix 40 mg. No evidence of volume overload on my exam today Continue home furosemide 40 mg p.o. daily (3) Atrial fibrillation: Code(s): I48.91 - Unspecified atrial fibrillation Status: Acute Assessment and Plan: In AFib/ RVR on arrival to the ER, now rate controlled after defervescence. Continue carvedilol for rate control. Continue Eliquis for stroke prophylaxis (4) Hypertension: Code(s): I10 - Essential (primary) hypertension Status: Acute Assessment and Plan: Blood pressures are reviewed and have been well controlled Last BP 103/73 Continue carvedilol and lisinopril Monitor blood pressure trends (5) Macrocytic anemia: Code(s): D53.9 - Nutritional anemia, unspecified Status: Acute Assessment and Plan: Mild anemia with hemoglobin 11.5 Iron studies reviewed, patient has decreased iron stores and will supplement. B12 and folate are within normal limits Refused lab draws today (6) Need for discharge planning: Status: Acute Assessment and Plan: Patient does not feel he can safely return home Wants to go to rehab. His previous rehab will not accept him back Will proceed with PT/OT evals Care coordination following to consider alternative rehab placement Subjective Date/time seen: 09/19/21 11:52 Interval history: Date of service: 09/19/2021 Chau harrell is a 60-year-old male with a history of CHF, atrial fibrillation on chronic anticoagulation, arthritis, depression who is seen in follow-up for COVID-19 and generalized weakness. The patient had been at [facility] for rehabilitation following hospitalization for CHF, lower extremity cellulitis, and weakness at [facility]. On 09/18/2021 the patient was scheduled to be discharged from [facility] as he had not been cooperating with therapy when he was found to have a fever and was sent to the ED for evaluation. On my encounter today the patient is feeling well and he offers no complaints. I began to ask him about where he was in rehab and about how he was scheduled to go home and he stated ?do not twist my words? I explained to him that I was attempting to gather information to best help him and he understood. He was bothered that I was interrupting his breakfast time. He tells me he cannot safely go home because he cannot walk. He wants to go to rehab to help build up his strength in his legs but he does not want to go back to [facility]. Per care coordination, [facility] will not allow the patient to come back to the facility due to poor cooperation with rehab. Additionally, the patient would like ?a professional? to come in to clean up the skin on his feet while he is here in the hospital. Patient denies shortness of breath, cough, nausea, vomiting, fever, chills, dizziness, lightheadedness. The patient has been refusing telemetry monitoring, blood draws, IVs, and some of his medications. Review of Systems Review of Systems: All systems reviewed & are unremarkable except as noted in HPI and below Exam Narrative: Mr. Harrell is a wel
[2021-09-19 14:56] LABS: Hematocrit 32.2 % (42.0-52.0); Hemoglobin 10.7 g/dL (14.0-18.0); Mean Corpuscular HGB Conc 33.2 g/dl (32-36); Mean Corpuscular Hemoglobin 33.6 pg (26-34); Mean Corpuscular Volume 101.3 fl (80-100); Mean Platelet Volume 8.8 fl (7.4-10.4); Platelet Count Result 253 k/mm3 (150-375); Red Blood Count 3.18 M/mm3 (4.6-6.20); Red Cell Distribution Width 13.8 % (11.5-14.5); White Blood Count 6.2 K/mm3 (4.5-10.0)
[2021-09-19 15:06] LABS: Alanine Aminotransferase 15 U/L (4-50); Albumin Level 2.9 g/dL (3.5-5.1); Alkaline Phosphatase 100 U/L (38-126); Anion Gap 5 mmol/L (8-16); Aspartate Amino Transferase 25 U/L (17-59); Blood Urea Nitrogen 14 mg/dL (9-20); CRP 5.5 mg/dL (<1.0); Calcium 8.8 mg/dL (8.4-10.2); Carbon Dioxide 30 mmol/L (22-30); Chloride 101 mmol/L (98-107); Estimated CRCL calculation 83 ml/min; Estimated Glomerular Filt Rate > 60; Glucose 111 mg/dL (65-110); Lactate Dehydrogenase 347 U/L (313-618); Magnesium 1.6 mg/dL (1.6-2.3); Potassium 3.5 mmol/L (3.4-5.0); Sodium 136 mmol/L (137-145)
[2021-09-19] MEDS: FERROUS SULFATE 324 MG TABLET PO (17:11)
[2021-09-19] MEDS: ARIPiprazole 10 MG TABLET PO (20:39)
[2021-09-20 04:00] VITALS: BP 110/75; PULSE 68; RESP 18; TEMP 36.3; O2SAT 97
[2021-09-20 08:00] VITALS: BP 131/84; PULSE 82; RESP 16; TEMP 36.9; O2SAT 100
[2021-09-20] MEDS: GABAPENTIN 300 MG CAPSULE PO ×3 (09:40→22:18)
[2021-09-20] MEDS: FERROUS SULFATE 324 MG TABLET PO ×2 (09:40→16:20)
[2021-09-20] MEDS: APIXABAN 5 MG TABLET PO ×2 (09:40→16:20)
[2021-09-20] MEDS: FUROSEMIDE 40 MG TABLET PO (09:41)
[2021-09-20] MEDS: carvediloL 3.125 MG TABLET PO ×2 (09:41→22:19)
[2021-09-20] MEDS: lisinopriL 5 MG TABLET PO (09:41)
[2021-09-20 11:17] LABS: Hematocrit 34.2 % (42.0-52.0)
[2021-09-20 12:00] VITALS: BP 106/65; PULSE 90; RESP 16; TEMP 36.9; O2SAT 100
--- NOTE | 2021-09-20 12:26 | PM.IMPN ---
Progress Note: A&P Assessment and Plan (1) COVID-19 virus infection: Code(s): U07.1 - COVID-19 Status: Acute Assessment and Plan: Reports roommate at rehab was COVID positive. Positive COVID test on 09/18/2021 Minimal symptoms aside from low-grade fever prior to presentation. Afebrile this admission Supportive care. Patient has no oxygen requirements. Not a candidate for dexamethasone or remdesivir No evidence of pneumonia on CXR He has not been vaccinated for COVID-19 Continue isolation precautions (2) Congestive heart failure: Code(s): I50.9 - Heart failure, unspecified Status: Acute Assessment and Plan: CXR showed moderate cardiomegaly with possible mild pulmonary edema BNP 6300 Noted to have faint crackles initially by previous provider Received 1 time dose IV Lasix 40 mg. No evidence of volume overload on my exam today Continue home furosemide 40 mg p.o. daily (3) Atrial fibrillation: Code(s): I48.91 - Unspecified atrial fibrillation Status: Acute Assessment and Plan: In AFib/ RVR on arrival to the ER, now rate controlled after defervescence. Continue carvedilol for rate control. Continue Eliquis for stroke prophylaxis (4) Hypertension: Code(s): I10 - Essential (primary) hypertension Status: Acute Assessment and Plan: Blood pressures are reviewed and have been well controlled Last BP 131/84 Continue carvedilol and lisinopril Monitor blood pressure trends (5) Macrocytic anemia: Code(s): D53.9 - Nutritional anemia, unspecified Status: Acute Assessment and Plan: Mild anemia with hemoglobin remaining stable Iron studies reviewed, patient has decreased iron stores and will supplement. Continue ferrous sulfate B12 and folate are within normal limits (6) Need for discharge planning: Status: Acute Assessment and Plan: Patient does not feel he can safely return home Wants to go to rehab. His previous rehab will not accept him back Awaiting PT/OT evals. Care coordination following to consider alternative rehab placement vs home health Additional Plan Patient will benefit from outpatient podiatry follow-up to address his concerns regarding foot and toenail care Subjective Date/time seen: 09/20/21 12:26 Interval history: Date of service: 09/20/2021 hCau harrell is a 60-year-old male with a history of CHF, atrial fibrillation on chronic anticoagulation, arthritis, depression who is seen in follow-up for COVID-19 and generalized weakness. He feels well today. He states that his left leg is no longer bothering him but he still has just a small amount of pain in the right leg. He cannot describe this pain or elaborate on further details. He has not been out of bed since he is been in the hospital. I can't walk. Awaiting therapy evaluation. He denies shortness of breath, cough, chest pain. No fevers, chills, nausea, vomiting. Denies dizziness or lightheadedness. He reports a good appetite. Review of Systems Review of Systems: All systems reviewed & are unremarkable except as noted in HPI and below Exam Narrative: Mr. Harrell is a well-nourished, well-appearing 60-year-old male who is lying semi recumbent in bed. He appears comfortable and is in NARD. Neuro: awake, alert and oriented x4, speech clear, no focal neuro deficits noted HEENMT: normocephalic, atraumatic, EOMI, sclerae anicteric Neck: supple, no lymphadenopathy Respiratory: clear to auscultation bilaterally, nonlabored breathing Cardio: regular rate, regular rhythm with S1-S2 Abdomen: nondistended, normoactive bowel sounds, soft, nontender to palpation Extremities: no edema, erythema, or tenderness to palpation, DP pulses 2+ bilaterally, neurovascularly intact, able to wiggle toes bilaterally, brisk capillary refill Skin: Thickened skin on bilateral feet, thickened toenails, no rashes or lesions,
--- NOTE | 2021-09-20 12:47 | PCOTNOTE ---
Attempted OT evaluation. Patient adamantly declining any/all activity. His lunch arrived and strongly recommended that he sits up in the chair for lunch, but he reports that he wanted to eat in bed. Will continue to attempt.
[2021-09-20 16:00] VITALS: BP 135/90; PULSE 84; RESP 16; TEMP 36.6; O2SAT 100
[2021-09-20] MEDS: ACETAMINOPHEN 325 MG TABLET 650 MG PO (16:19)
[2021-09-20 20:00] VITALS: BP 112/71; PULSE 76; PULSE 84; RESP 16; TEMP 36.9; O2SAT 100
[2021-09-20 22:19] VITALS: PULSE 84
[2021-09-20] MEDS: ARIPiprazole 10 MG TABLET PO (22:19)
[2021-09-21] VITALS (9 sets, daily range): BP systolic 101–121; BP diastolic 57–74; PULSE 55–95; RESP 16–18; TEMP 36.6–37.5; O2SAT 97–100
[2021-09-21] MEDS: GABAPENTIN 300 MG CAPSULE PO ×3 (05:39→20:39)
--- NOTE | 2021-09-21 09:15 | PCPTNOTE ---
Pt refused this morning reporting he just got out of bed andhis breaksfast was messed up. Pt agreeable for therapist to return at later time this date.
[2021-09-21] MEDS: FUROSEMIDE 40 MG TABLET PO (09:18)
[2021-09-21] MEDS: lisinopriL 5 MG TABLET PO (09:18)
[2021-09-21] MEDS: carvediloL 3.125 MG TABLET PO ×2 (09:19→20:39)
[2021-09-21] MEDS: FERROUS SULFATE 324 MG TABLET PO ×2 (09:19→16:14)
[2021-09-21] MEDS: APIXABAN 5 MG TABLET PO ×2 (09:19→16:14)
[2021-09-21 10:28] LABS: Basophils Percent Auto 0.6 % (0.2-1.2); Eosinophils Absolute Auto 0.4 K/mm3 (0-0.3); Eosinophils Percent Auto 7.6 % (0-4.4); Hematocrit 35.9 % (42.0-52.0); Immature Granulocyte Absolute 0.01 K/mm3 (0.00-0.031); Immature Granulocyte Percent A 0.2 % (0-0.5); Lymphocytes Absolute Auto 1.81 K/mm3 (0.9-3.2); Lymphocytes Percent Auto 33.6 % (18.3-44.2); Mean Corpuscular HGB Conc 33.4 g/dl (32-36); Mean Corpuscular Hemoglobin 34.7 pg (26-34); Mean Corpuscular Volume 103.8 fl (80-100); Mean Platelet Volume 8.6 fl (7.4-10.4); Monocytes Absolute Auto 0.4 K/mm3 (0.1-0.6); Monocytes Percent Auto 8.2 % (2.6-8.5); Neutrophils Absolute Auto 2.7 K/mm3 (1.3-6.7); Neutrophils Percent Auto 49.8 % (45.5-73.1); Platelet Count Result 294 k/mm3 (150-375); Red Blood Count 3.46 M/mm3 (4.6-6.20); Red Cell Distribution Width 13.8 % (11.5-14.5); White Blood Count 5.4 K/mm3 (4.5-10.0)
[2021-09-21 10:38] LABS: Alanine Aminotransferase 16 U/L (4-50); Albumin Level 3.4 g/dL (3.5-5.1); Alkaline Phosphatase 105 U/L (38-126); Anion Gap 3 mmol/L (8-16); Aspartate Amino Transferase 26 U/L (17-59); Bilirubin,Total 1.1 mg/dL (0.2-1.3); Blood Urea Nitrogen 14 mg/dL (9-20); Calcium 9.2 mg/dL (8.4-10.2); Carbon Dioxide 30 mmol/L (22-30); Chloride 103 mmol/L (98-107); Estimated CRCL calculation 68 ml/min; Estimated Glomerular Filt Rate > 60; Glucose 108 mg/dL (65-110); Potassium 3.7 mmol/L (3.4-5.0); Sodium 136 mmol/L (137-145)
--- NOTE | 2021-09-21 14:12 | P.DS_ITS ---
DS: Admitting Diagnosis Discharge Date 09/21/2021 (possible 09/22/2021 if no ambulance available today) Admitting Diagnosis COVID, CHF, Atrial fibrillation, HTN, Anemia. DS: Discharge Diagnosis Discharge Diagnosis (1) COVID-19 virus infection: Code(s): U07.1 - COVID-19 Status: Acute Assessment and Plan: Reports roommate at rehab was COVID positive. Positive COVID test on 09/18/2021 * Minimal symptoms aside from low-grade fever prior to presentation. Afebrile this admission * Supportive care. * Patient has no oxygen requirements. Not a candidate for dexamethasone or remdesivir * No evidence of pneumonia on CXR * He has not been vaccinated for COVID-19. Needs to get his COVID vaccine after he is fully recovered in perhaps 30-45 days. * Continue isolation precautions * This note may serve as a progress note (if the ambulance or facility is unable to accept patient this afternoon) or this note may serve as a Discharge note. (2) Congestive heart failure: Code(s): I50.9 - Heart failure, unspecified Status: Acute Assessment and Plan: CXR showed moderate cardiomegaly with possible mild pulmonary edema * BNP 6300, improved * Noted to have faint crackles initially by previous provider * Received 1 time dose IV Lasix 40 mg. * No evidence of volume overload on my exam today * Continue home furosemide 40 mg p.o. daily * This note may serve as a progress note (if the ambulance or facility is unable to accept patient this afternoon) or this note may serve as a Discharge note. (3) Atrial fibrillation: Code(s): I48.91 - Unspecified atrial fibrillation Status: Acute Assessment and Plan: In AFib/ RVR on arrival to the ER, now rate controlled after defervescence. * Continue carvedilol for rate control. * HR 72-78 and regular on auscultation * Continue Eliquis for stroke prophylaxis * This note may serve as a progress note (if the ambulance or facility is unable to accept patient this afternoon) or this note may serve as a Discharge note. (4) Hypertension: Code(s): I10 - Essential (primary) hypertension Status: Acute Assessment and Plan: Blood pressures are reviewed and have been well controlled * Last BP 108/73 - 116/74 * Continue carvedilol and lisinopril * Monitor blood pressure trends * This note may serve as a progress note (if the ambulance or facility is unable to accept patient this afternoon) or this note may serve as a Discharge note. (5) Macrocytic anemia: Code(s): D53.9 - Nutritional anemia, unspecified Status: Acute Assessment and Plan: Mild anemia with hemoglobin remaining stable * Iron studies reviewed, patient has decreased iron stores and will supplement. Continue ferrous sulfate * B12 and folate are within normal limits * This note may serve as a progress note (if the ambulance or facility is unable to accept patient this afternoon) or this note may serve as a Discharge note. (6) Need for discharge planning: Status: Acute Assessment and Plan: Patient does not feel he can safely return home * Wants to go to rehab. His previous rehab will not accept him back. * Care coordination following to consider alternative rehab placement vs home health * Patient was excited today when he found out that care coordination had found him a care home facility to be discharged to today. * PT/OT [place] - completed and accepted to [facility] per Bottom Worker. * Chart reviewed, patient examined, and patient stable and ready for discharge to rehab.
--- NOTE | 2021-09-21 14:12 | PM.DS ---
DS: Admitting Diagnosis Discharge Date 09/21/2021 (possible 09/22/2021 if no ambulance available today) Admitting Diagnosis COVID, CHF, Atrial fibrillation, HTN, Anemia. DS: Discharge Diagnosis Discharge Diagnosis (1) COVID-19 virus infection: Code(s): U07.1 - COVID-19 Status: Acute Assessment and Plan: Reports roommate at rehab was COVID positive. Positive COVID test on 09/18/2021 Minimal symptoms aside from low-grade fever prior to presentation. Afebrile this admission Supportive care. Patient has no oxygen requirements. Not a candidate for dexamethasone or remdesivir No evidence of pneumonia on CXR He has not been vaccinated for COVID-19. Needs to get his COVID vaccine after he is fully recovered in perhaps 30-45 days. Continue isolation precautions This note may serve as a progress note (if the ambulance or facility is unable to accept patient this afternoon) or this note may serve as a Discharge note. (2) Congestive heart failure: Code(s): I50.9 - Heart failure, unspecified Status: Acute Assessment and Plan: CXR showed moderate cardiomegaly with possible mild pulmonary edema BNP 6300, improved Noted to have faint crackles initially by previous provider Received 1 time dose IV Lasix 40 mg. No evidence of volume overload on my exam today Continue home furosemide 40 mg p.o. daily This note may serve as a progress note (if the ambulance or facility is unable to accept patient this afternoon) or this note may serve as a Discharge note. (3) Atrial fibrillation: Code(s): I48.91 - Unspecified atrial fibrillation Status: Acute Assessment and Plan: In AFib/ RVR on arrival to the ER, now rate controlled after defervescence. Continue carvedilol for rate control. HR 72-78 and regular on auscultation Continue Eliquis for stroke prophylaxis This note may serve as a progress note (if the ambulance or facility is unable to accept patient this afternoon) or this note may serve as a Discharge note. (4) Hypertension: Code(s): I10 - Essential (primary) hypertension Status: Acute Assessment and Plan: Blood pressures are reviewed and have been well controlled Last BP 108/73 - 116/74 Continue carvedilol and lisinopril Monitor blood pressure trends This note may serve as a progress note (if the ambulance or facility is unable to accept patient this afternoon) or this note may serve as a Discharge note. (5) Macrocytic anemia: Code(s): D53.9 - Nutritional anemia, unspecified Status: Acute Assessment and Plan: Mild anemia with hemoglobin remaining stable Iron studies reviewed, patient has decreased iron stores and will supplement. Continue ferrous sulfate B12 and folate are within normal limits This note may serve as a progress note (if the ambulance or facility is unable to accept patient this afternoon) or this note may serve as a Discharge note. (6) Need for discharge planning: Status: Acute Assessment and Plan: Patient does not feel he can safely return home Wants to go to rehab. His previous rehab will not accept him back. Care coordination following to consider alternative rehab placement vs home health Patient was excited today when he found out that care coordination had found him a long-term facility to be discharged to today. PT/OT evals - completed and accepted to [facility] per [employer] Operator. Chart reviewed, patient examined, and patient stable and ready for discharge to rehab. He needs to continue with aggressive PT and OT in order to improve. Patient agreed that he was ready for discharge. This note may serve as a progress note (if the ambulance or facility is unable to accept patient this afternoon) or this note may serve as a Discharge note. DS: Summary Hospital Course Hospital Course: COVID, CHF, Atrial fibrillation, HTN, Anemia. Patient was admitted, monitored, and
[2021-09-21] MEDS: ACETAMINOPHEN 325 MG TABLET 650 MG PO (16:14)
--- NOTE | 2021-09-21 17:35 | PC.NURSE ---
pts sister Eileen called and wanted to talk to this nurse. pts is refusing discharge due to ambulance eta 830pm. states you will cancel that ambulance and he can leave first thing in the morning. at the end of our phone call gracie islas stated you are on a conference call with my judicial assistant, i just want you to know this nurse had to idea about a judicial assistant or conference call and did not give permission.
--- NOTE | 2021-09-21 18:05 | PC.NURSE ---
Addendum entered by Nicki Garcia RN 09/21/21 18:15: pt alert and oriented at the time of this discussion. Original Note: at 1800 this nurse and executive secretary went to pts room to ask if it was okay if the ambulance comes at 830 pm or later to pick pt [facility] and [facility]. pt stated yes that is fine. pt understands that it may be later due to ambulance getting emergency calls. household refrigerator mechanic made aware.
--- NOTE | 2021-09-21 18:41 | PC.NURSE ---
Addendum entered by Donna Pride RN 09/21/21 19:01: Spoke to Ariana about this situation. Original Note: Spoke to Eileen via phone about patient's discharge tonight to [facility]. Eileen stated that the patient will not be leaving tonight because [facility] is not safe, etc., and that it is too cold for him to discharge and that she would pick him up in the morning and take him home, then they would decide which facility he will go to. I put Eileen on hold and went to talk to Chau about his discharge. He was on the phone with Maddie and Eileen. Patient stated he is not going to [facility] because it's not safe and they are prejudice. I tried to get patient to calm down and talk with me, but he would not. He kept telling me to speak to Maddie. I stated that I would talk to Eileen about this. When I stepped out of the patient's room to talk to Eileen again on the phone, she was not there. She called back and stated her concerns again repeatedly. She stated that the patient is not to leave tonight and she will pick him up in the morning.
[2021-09-21] MEDS: ARIPiprazole 10 MG TABLET PO (20:39)
[2021-09-22 01:20] VITALS: BP 92/54; PULSE 77; RESP 16; TEMP 36.9; O2SAT 100
[2021-09-22 05:19] VITALS: O2SAT 98
[2021-09-22 05:47] VITALS: BP 122/88; PULSE 84; RESP 18; TEMP 36.6; O2SAT 100
[2021-09-22] MEDS: GABAPENTIN 300 MG CAPSULE PO ×2 (05:57→13:10)
[2021-09-22 08:00] VITALS: BP 100/50; PULSE 82; RESP 14; TEMP 36.6; O2SAT 100
--- NOTE | 2021-09-22 09:44 | PM.DS ---
DS: Admitting Diagnosis Discharge Date Patient was seen and examined on September 22, 2021 Admitting Diagnosis Acute on chronic systolic congestive Heart failure DS: Discharge Diagnosis Discharge Diagnosis (1) COVID-19 virus infection: Code(s): U07.1 - COVID-19 Status: Acute Assessment and Plan: Reports roommate at rehab was COVID positive. Positive COVID test on 09/18/2021 Minimal symptoms aside from low-grade fever prior to presentation. Afebrile this admission Supportive care. Patient has no oxygen requirements. Not a candidate for dexamethasone or remdesivir No evidence of pneumonia on CXR He has not been vaccinated for COVID-19. Needs to get his COVID vaccine after he is fully recovered in perhaps 30-45 days. Continue isolation precautions (2) Congestive heart failure: Qualifiers: Heart failure type: systolic Heart failure chronicity: acute on chronic Qualified Code(s): I50.23 - Acute on chronic systolic (congestive) heart failure Code(s): I50.9 - Heart failure, unspecified Status: Acute Assessment and Plan: CXR showed moderate cardiomegaly with possible mild pulmonary edema BNP 6300, improved Noted to have faint crackles initially by previous provider Received 1 time dose IV Lasix 40 mg. No evidence of volume overload on my exam today Continue home furosemide 40 mg p.o. daily Discussed with sister Eileen by phone his poor prognosis and necessity for close attention to diet medication compliance and follow-up with both primary care and Cardiology. Both Eileen and his other sister stated that primary care follow-up for 2-3 months out to the office as they had called. However to see them within 1 week at my office for primary care. They wish to see per Cardiology for follow-up of his severe cardiomyopathy. (3) Atrial fibrillation: Qualifiers: Atrial fibrillation type: unspecified chronic Qualified Code(s): I48.20 - Chronic atrial fibrillation, unspecified Code(s): I48.91 - Unspecified atrial fibrillation Status: Acute Assessment and Plan: In AFib/ RVR on arrival to the ER, now rate controlled after defervescence. Continue carvedilol for rate control. HR 72-78 and regular on auscultation Continue Eliquis for stroke prophylaxis (4) Hypertension: Qualifiers: Hypertension type: unspecified Qualified Code(s): I10 - Essential (primary) hypertension Code(s): I10 - Essential (primary) hypertension Status: Acute Assessment and Plan: Blood pressures are reviewed and have been well controlled BP reviewed and stable 09/22 Continue carvedilol and lisinopril Monitor blood pressure trends (5) Macrocytic anemia: Code(s): D53.9 - Nutritional anemia, unspecified Status: Acute Assessment and Plan: Mild anemia with hemoglobin remaining stable Iron studies reviewed, patient has decreased iron stores. Continue ferrous sulfate B12 and folate are within normal limits DS: Summary Hospital Course Reason for hospitalization: Weakness and low blood pressure Hospital Course: Patient was admitted and during being evaluated during discharge from rehabilitation. He was found have low blood pressure. He had a dry cough and some malaise and body aches. He was brought to the hospital found have a chest x-ray consistent with the congestive heart failure. Responded well to diuresis with IV furosemide. COVID-19 testing was positive. He is placed on isolation. As he did not require supplemental oxygen he required no treatment other than supportive for this. He was transitioned to p.o. furosemide and his lisinopril and carvedilol were continued. He was very weak and unable to walk without 2 person assist. Family did not want him to go to [facility] but to go live with his sister Eileen in [facility]. Echocardiogram from last year and revealed a in a ejection fraction of
[2021-09-22 10:24] VITALS: PULSE 80
[2021-09-22] MEDS: ACETAMINOPHEN 325 MG TABLET 650 MG PO (10:24)
[2021-09-22] MEDS: APIXABAN 5 MG TABLET PO (10:24)
[2021-09-22] MEDS: carvediloL 3.125 MG TABLET PO (10:24)
[2021-09-22] MEDS: lisinopriL 5 MG TABLET PO (10:25)
[2021-09-22] MEDS: FERROUS SULFATE 324 MG TABLET PO (10:25)
[2021-09-22] MEDS: FUROSEMIDE 40 MG TABLET PO (10:25)
[2021-09-22 12:00] VITALS: BP 102/65; PULSE 80; RESP 14; TEMP 36.7; O2SAT 100
--- NOTE | 2021-09-22 14:51 | PC.NURSE ---
pt sister present, and presented discharge paperwork due to request and stated would go over it with pt, this nurse went over discharge paperwork with sister and sister verbally voiced no concerns. pt presented to car via wheelchair and assisted to car with x2 assist. pt sister looked over paperwork and is refusing to sign. wrote note at bottom of page of patient signature page. pt refusing to sign discharge paperwork at this time.
== END 2021-09-22 14:35 | disposition home or self-care (01) | DRG 177 ==
LOC: ANHED 13:08 → ANH3MEDSUR 15:29
PROVIDERS: Physician Assistant; Admitting Provider Internal Medicine; Emergency Provider Emergency Medicine; Visit Provider Nurse Practitioner
DX: U07.1 COVID-19 (principal); I50.23 Acute on chronic systolic (congestive) heart failure; I48.20 Chronic atrial fibrillation, unspecified; I11.0 Hypertensive heart disease with heart failure; D53.9 Nutritional anemia, unspecified; I48.91 Unspecified atrial fibrillation; M19.90 Unspecified osteoarthritis, unspecified site; F32.A Depression, unspecified; Z79.01 Long term (current) use of anticoagulants; Z87.891 Personal history of nicotine dependence
CPT/HCPCS: 36415; 71045; 80048; 80053; 80076; 81001; 82607; 82728; 82746; 83540; 83550; 83615; 83735; 83880; 84443; 85014; 85018; 85025; 85027; 86140; 87040; 93005; 93970; 96374; 97161; 97165; 99285; A9270; C9803; G0378; J1940; U0003; U0005